=== PATIENT | male | born 1960 | race Caucasian/White ===

== ENCOUNTER → 2016-05-26 | Outpatient (CLI) | payer OTHER ==
[~2016-05-26] VITALS: Ht 175.3 cm; Wt 117.9 kg
[~2016-05-26] MED LIST: ASPI81CH PO; ATOR1TAB18 PO; CLAR10CA3 PO; CLAR5CHW; FENO54TA2 PO; IRON50TA PO; LEVO125T3 PO; LIDOCAINE 2% INJ 100 MG/5 ML SDV (FOR ANES.) As Ordered ONE; MOTR200T4; MULTCAP PO; NS 1,000 ML IV SCH; PARO40TA PO; PAXI40TA2 PO; PRIL40CA; PROPOFOL 200 MG/20 ML VIAL As Ordered ONE; PROT1TAB2 PO; QUET30XR PO; SERO1TAB2 PO; WELL100T PO
--- NOTE | 2016-05-26 11:50 | ROOR ---
Patient Name: Mars Elaine Procedure Date: 05/26/2016 11:28 AM Date of : 1960 Age: 55 Room: [facility] Gender: Male Note Status: Finalized Procedure: Upper GI endoscopy Indications: Iron deficiency anemia Providers: Prosper MCGEE MD Referring MD: SERGEY HAZEL MD Requesting Provider: Medicines: Monitored Anesthesia Care Complications: No immediate complications. Procedure: Pre-Anesthesia Assessment: - The heart rate, respiratory rate, oxygen saturations, blood pressure, adequacy of pulmonary ventilation, and response to care were monitored throughout the procedure. The Endoscope was introduced through the mouth, and advanced to the second part of duodenum. The upper GI endoscopy was accomplished without difficulty. The patient tolerated the procedure well. Findings: The esophagus was normal. The stomach was normal. The examined duodenum was normal. Impression: - Normal esophagus. - Normal stomach. - Normal examined duodenum. - No specimens collected. Recommendation: - Observe patient's clinical course. Prosper Mcgee MD Prosper MCGEE MD 05/26/2016 11:49:40 AM This report has been signed electronically. Number of Addenda: 0 Note Initiated On: 05/26/2016 11:28 AM Estimated Blood Loss: Estimated blood loss: none.
[2016-05-26 12:08] VITALS: BP 137/77
--- NOTE | 2016-05-26 12:08 | ROOR ---
Patient Name: Mars Elaine Procedure Date: 05/26/2016 11:30 AM Date of : 1960 Age: 55 Room: [facility] Gender: Male Note Status: Finalized Procedure: Colonoscopy Indications: Iron deficiency anemia Providers: Prosper MCGEE MD Referring MD: SERGEY HAZEL MD Requesting Provider: Medicines: Monitored Anesthesia Care Complications: No immediate complications. Procedure: Pre-Anesthesia Assessment: - The heart rate, respiratory rate, oxygen saturations, blood pressure, adequacy of pulmonary ventilation, and response to care were monitored throughout the procedure. The Colonoscope was introduced through the anus and advanced to 5 cm into the ileum. The colonoscopy was performed without difficulty. The patient tolerated the procedure well. The quality of the bowel preparation was adequate. Findings: The perianal and digital rectal examinations were normal. (EXAM: Complete, PREP: Fair/Adequate) A 4 mm polyp was found in the sigmoid colon. The polyp was sessile. The polyp was removed with a cold snare. Resection and retrieval were complete. Small Internal Hemorrhoids. The exam was otherwise without abnormality on direct and retroflexion views. Impression: - (EXAM: Complete, PREP: Fair/Adequate) - One 4 mm polyp in the sigmoid colon, removed with a cold snare. Resected and retrieved. - Small Internal Hemorrhoids. - The examination was otherwise normal on direct and retroflexion views. Recommendation: - Repeat colonoscopy in 3 years for surveillance. Prosper Mcgee MD Prosper MCGEE MD 05/26/2016 12:08:15 PM This report has been signed electronically. Number of Addenda: 0 Note Initiated On: 05/26/2016 11:30 AM Estimated Blood Loss: Estimated blood loss: none.
== END | disposition home or self-care (01) ==
LOC: M OPP 08:50
PROVIDERS: ATTEND Internal Medicine Gastroenterology
DX: D50.9 Iron deficiency anemia, unspecified (principal); D12.5 Benign neoplasm of sigmoid colon; K64.8 Other hemorrhoids; E78.00 Pure hypercholesterolemia, unspecified; K21.9 Gastro-esophageal reflux disease without esophagitis; E07.9 Disorder of thyroid, unspecified; R06.83 Snoring; F33.9 Major depressive disorder, recurrent, unspecified; F41.9 Anxiety disorder, unspecified; G47.30 Sleep apnea, unspecified; Z87.891 Personal history of nicotine dependence; Z79.82 Long term (current) use of aspirin; Z79.899 Other long term (current) drug therapy; Z88.5 Allergy status to narcotic agent; Z88.0 Allergy status to penicillin

== ENCOUNTER → 2016-06-06 | Outpatient (REF) | payer OTHER, MEDICAID ==
[~2016-06-06] MED LIST changes: +ASPI81TA7 PO; +DOCU100C PO; +LEVO137T14 PO; -LIDOCAINE 2% INJ 100 MG/5 ML SDV (FOR ANES.) As Ordered ONE; -NS 1,000 ML IV SCH; +PAXI30TA11 PO; +PRAZ1CAP PO; -PROPOFOL 200 MG/20 ML VIAL As Ordered ONE; +TUMS500C PO; +VITMTA PO
[2016-06-06 17:35] LABS: AMPHETAMINES URINE REFLEX NEGATIVE (NEGATIVE); BARBITURATES URINE REFLEX NEGATIVE (NEGATIVE); BENZODIAZEPINES URINE REFLEX NEGATIVE (NEGATIVE); COCAINE METABOLITE URINE REFLE NEGATIVE (NEGATIVE); CONTROL LINE INT CTR LINE PRESENT; METHADONE URINE REFLEX NEGATIVE (NEGATIVE); OPIATES URINE REFLEX NEGATIVE (NEGATIVE); TRICYCLIC ANTIDEPRESS UR REFL NEGATIVE (NEGATIVE)
== END ==
LOC: M OUTALCOH 16:53
PROVIDERS: ATTEND Psychiatry & Neurology Psychiatry
DX: Z13.9 Encounter for screening, unspecified (principal); F12.10 Cannabis abuse, uncomplicated

== ENCOUNTER 2016-06-07 14:19 | Inpatient (IN) | payer MEDICAID, OTHER ==
[~2016-06-07] VITALS: Ht 175.3 cm; Wt 116.3 kg
[~2016-06-07 14:19] MED LIST changes: -ASPI81TA7 PO; -DOCU100C PO; -LEVO137T14 PO; -PAXI30TA11 PO; -PRAZ1CAP PO; -TUMS500C PO; -VITMTA PO
[2016-06-07 15:04] LABS: MEAN CORPUSCULAR HEMOGLOBIN 28.9 pg (27.0-33.0); MEAN CORPUSCULAR HGB CONC 31.9 g/dl (32.0-36.5); MEAN CORPUSCULAR VOLUME 90.6 fl (80.0-96.0); RED CELL DISTRIBUTION WIDTH 15.4 % (11.5-14.5); WHITE BLOOD COUNT 7.7 K/mm3 (4.0-10.0)
--- NOTE | 2016-06-07 15:19 | REP ---
Portable chest: Single view. History: Shortness of breath. Comparison study: May 02, 2012 Findings: The lungs are symmetrically hyperinflated consistent with some degree of COPD but clear. Pleural angles are sharp. Heart size is normal. Pulmonary vasculature is not increased. No significant bony abnormality is seen. Impression: Hyperinflation. No acute disease. Signed by Kendall Trinh MD 06/07/2016 03:10 P
[2016-06-07 15:34] LABS: ALBUMIN 4.4 GM/DL (3.2-5.2); ALBUMIN/GLOBULIN RATIO 1.38 (1.00-1.93); ALKALINE PHOSPHATASE 107 U/L (45-117); ALT/SGPT 48 U/L (12-78); ANION GAP 11 MEQ/L (8-16); AST/SGOT 28 U/L (15-37); BILIRUBIN,DIRECT 0.1 MG/DL (0.0-0.2); BILIRUBIN,TOTAL 0.4 MG/DL (0.2-1.0); BLOOD UREA NITROGEN 13 MG/DL (7-18); CALCIUM LEVEL 9.4 MG/DL (8.5-10.1); CARBON DIOXIDE LEVEL 25 MEQ/L (21-32); CHLORIDE LEVEL 105 MEQ/L (98-107); CREATININE FOR GFR 1.28 MG/DL (0.70-1.30); GLOMERULAR FILTRATION RATE > 60.0 (>56); GLUCOSE, FASTING 98 MG/DL (70-105); POTASSIUM SERUM 4.3 MEQ/L (3.5-5.1); SODIUM LEVEL 141 MEQ/L (136-145); TOTAL PROTEIN 7.6 GM/DL (6.4-8.2)
[2016-06-07 15:56] LABS: MAGNESIUM LEVEL 2.3 MG/DL (1.8-2.4)
[2016-06-07 16:45] LABS: CONTROL LINE INT CTR LINE PRESENT; METHADONE URINE NEGATIVE (NEGATIVE); TRICYCLIC ANTIDEPRESS URINE NEGATIVE (NEGATIVE)
[2016-06-07] MEDS ORDERED: PAXI30TA11 PO (17:26)
[2016-06-07] MEDS ORDERED: PRAZ1CAP PO (17:32)
[2016-06-07] MEDS ORDERED: TUMS500C PO (17:32)
[2016-06-07] MEDS ORDERED: ASPI81TA7 PO (17:32)
[2016-06-07] MEDS ORDERED: DOCU100C PO (17:32)
[2016-06-07] MEDS ORDERED: VITMTA PO (17:32)
[2016-06-07] MEDS ORDERED: LEVO137T14 PO (17:32)
--- NOTE | 2016-06-07 18:31 | REP ---
Bilateral duplex carotid and jugular ultrasound post trauma, hanging injury: Tibiotalar Doppler assessment of the carotid arteries bilaterally identifies no evidence of dissection or occlusion. There is no atheromatous plaque. 2-D and color Doppler ultrasound of the jugular veins bilaterally identified. No evidence of thrombus. Ultrasonography of the soft tissues in area where there is a zone of skin redness around the neck identifies subcutaneous edema versus hematoma superficially. Signed by Moshe Walton MD 06/07/2016 06:23 P
[2016-06-07] MEDS ORDERED: HEPARIN SOD (PORCINE) 5000 UNITS/ML VIAL As Ordered ONE (18:52)
[2016-06-07] MEDS ORDERED: ASPIRIN 81 MG CHEW TABLET As Ordered ONE (18:52)
[2016-06-07] MEDS ORDERED: METOPROLOL TART 50 MG TAB As Ordered ONE (18:53)
[2016-06-07] MEDS ORDERED: HEPARIN 25,000 UNITS/250 ML D5W BAG (100 UNITS/ML) As Ordered ONE (18:53)
--- NOTE | 2016-06-08 00:33 | EDDOCDS ---
Physician Documentation [facility] Name: Mars Elaine Age: 55 yrs Sex: Male : 1960 Arrival Date: 06/07/2016 Time: 14:[address] MD: Trent Jimenez D Disposition: 06/07 21:21 Critical Care: Critical care not applicable. Disposition: 06/07/16 21:22 Hospitalization ordered by Renan Chung for Inpatient Admission. Preliminary diagnosis are Major depressive disorder, recurrent severe without psychotic features, Suicide attempt - by hanging. - Bed requested for Admit. - Status is Inpatient Admission. tm5 - Condition is Stable. - Problem is new. - Symptoms are unchanged. Historical: - Allergies: PENICILLINS; oxycodone; - Home Meds: 1. loratadine 10 mg Oral tab 1 tab once daily (Last dose: 06/07/2016 08:00) 2. Paroxetine HCl Oral 60 mg once daily (Last dose: 06/07/2016 08:00) 3. levothyroxine 137 mcg Oral tab 1 tab once daily (Last dose: 06/07/2016 08:00) 4. aspirin 81 mg Oral tab 1 tab once daily (Last dose: 06/07/2016 08:00) 5. Tums Unknown Oral as needed (Last dose: Unknown) 6. pantoprazole 40 mg oral TbEC 1 tab once daily (Last dose: 06/07/2016 08:00) 7. docusate sodium 100 mg Oral cap as needed (Last dose: Unknown) 8. fenofibrate 54 mg oral tab 1 tab once daily (Last dose: 06/06/2016 12:00) 9. Seroquel XR 300 mg oral Tb24 1 tab once daily (Last dose: 06/06/2016 20:00) 10. multivitamin Oral tab daily (Last dose: 06/06/2016 20:00) 11. ferrous sulfate 325 mg (65 mg iron) Oral tab daily (Last dose: 06/06/2016 20:00) 12. atorvastatin 80 mg oral tab 1 tab once daily (Last dose: 06/06/2016 20:00) - PMHx: Anxiety Disorder; Depression; High Cholesterol; Hypothyroidism; PTSD; GERD; iron deficiency; Sleep Apnea w/ CPAP; - PSHx: Left shoulder bone spur removal; - Social history: Smoking status: Patient states former smoker of tobacco. No barriers to communication noted, The patient speaks fluent Hungarian. - Family history: Mother has/had Suicide. - : The pt / caregiver states he / she is not on anticoagulants. Home medication list is obtained from the patient, Note states that she picked up a prescription for Prazosin 1 mg p.o. QHS that patient was scheduled to begin tonight for his nightmare. Medication verified by Giovanni Merlos. - Exposure Risk Screening:: None identified. Vital Signs: 14:29 Pulse 72 MON; Pulse Ox 96% ; ja5 14:30 BP 128 / 85 (auto/); ja5 14:38 BP 125 / 85; Pulse 68; Resp 18; Temp 97.7(O); Pulse Ox 98% on R/A; Weight 114.76 kg / ct3 253 lbs (M); Height 5 ft. 9 in. (175.26 cm) (R); 14:45 BP 133 / 85 (auto/); jc4 14:45 Pulse 67 MON; Pulse Ox 96% ; jc4 15:00 BP 144 / 88 (auto/); jc4 15:02 Pulse 70 MON; Pulse Ox 99% ; jc4 15:15 BP 130 / 71 (auto/); jc4 15:15 Pulse 62 MON; Pulse Ox 100% ; jc4 15:30 BP 129 / 76 (auto/); jc4 15:30 Pulse 67 MON; Pulse Ox 97% ; jc4 15:45 BP 111 / 66 (auto/); jc4 15:45 Pulse 69 MON; Pulse Ox 93% ; jc4 16:00 BP 123 / 70 (auto/); jc4 16:01 Pulse 71 MON; Pulse Ox 97% ; jc4 16:14 Pulse 72 MON; Pulse Ox 98% ; ja5 16:15 BP 128 / 78 (auto/); ja5 16:29 Pulse 72 MON; Pulse Ox 94% ; ja5 16:30 BP 126 / 63 (auto/); ja5 16:59 Pulse 70 MON; Pulse Ox 96% ; ja5 17:00 BP 119 / 69 (auto/); ja5 17:14 Pulse 72 MON; Pulse Ox 96% ; ja5 17:15 BP 116 / 70 (auto/); ja5 17:29 Pulse 76 MON; Pulse Ox 97% ; ja5 17:30 BP 142 / 90 (auto/); ja5 18:40 BP 147 / 90; Pulse 75; Resp 20; Temp 97.3(T); Pulse Ox 94% on R/A; Pain 0/10; ja5 19:38 BP 141 / 76; Pulse 76; Resp 20; Pulse Ox 96% on R/A; Pain 0/10; tm5 20:00 BP 147 / 60 (auto/); tm5 20:00 Pulse 70 MON; Resp 18 S; Pulse Ox 95% on R/A; Pain 0/10; tm5 0208 00:19 Pulse 65; Resp 18; Temp 97.0; Pulse Ox 98% ; mas 00:26 BP 163 / 88; mas 06/07 14:38 Body Mass Index 37.36 (114.76 kg, 175.26 cm) ct3 MDM: 06/07 14:25 Consult PFS/PSA/Senior Coldfusion Developer ordered. sd1 14:25 Consult PFS/PSA/Senior Coldfusion Developer: Patient's case requires discussion with on-call sd1 Psychiatrist ordered. 14:25 PSA/PFS to call Nursing [employer] Net Developer, to enter patient data on [place] Safe Act if patient sd1 involuntarily admitted or transferred for SI or HI ordered. 14:25 Outreach Professional/Pulse Ox/q 15 min VS ordered. sd1 14:25 Confirm accurate psychiatric medication list and times of last dosage ordered. sd1 14:25 Detain Pt Until Medically/PFS Cleared ordered. sd1 14:25 IV Saline Lock ordered. sd1 14:26 Acetaminophen Level Ordered. EDMS 14:26 Basic Metabolic Profile Ordered. EDMS 14:26 Complete Blood Count Ordered. EDMS 14:26 Drug Eval Toxicology ED Only Ordered. EDMS 14:26 Ethyl Alcohol (ethanol) Ordered. EDMS 14:26 Liver Profile Ordered. EDMS 14:26 Salicylate Level Ordered. EDMS 14:26 Thyroid Stimulating Hormone Ordered. EDMS 14:26 ECG WITH READING ER PHYS+CARDIAG ordered. EDMS 14:38 Chest, 1 View Ordered. EDMS 14:54 CARDIAC INJURY PROFILE Ordered. EDMS 14:54 TROPONIN Ordered. EDMS 15:23 Repeat EKG (put time details section) ordered. sd1 15:28 MAGNESIUM LEVEL Ordered. EDMS 15:55 Acetaminophen Level Reviewed. sd1 15:55 Complete Blood Count Reviewed. sd1 15:55 Ethyl Alcohol (ethanol) Reviewed. sd1 15:55 Salicylate Level Reviewed. sd1 15:55 Thyroid Stimulating Hormone Reviewed. sd1 15:55 CARDIAC INJURY PROFILE Reviewed. sd1 15:55 Basic Metabolic Profile Reviewed. sd1 15:55 Liver Profile Reviewed. sd1 15:55 TROPONIN Reviewed. sd1 15:55 Chest, 1 View Reviewed. sd1 16:16 Acetaminophen Level Reviewed. cs11 16:16 Ethyl Alcohol (ethanol) Reviewed. cs11 16:16 Salicylate Level Reviewed. cs11 16:16 Thyroid Stimulating Hormone Reviewed. cs11 16:16 CARDIAC INJURY PROFILE Reviewed. cs11 16:16 Basic Metabolic Profile Reviewed. cs11 16:16 Liver Profile Reviewed. cs11 16:16 TROPONIN Reviewed. cs11 16:16 MAGNESIUM LEVEL Reviewed. cs11 16:31 Financial registration complete. ks16 16:42 Repeat EKG (put time details section) complete. lbd 16:46 ECG WITH READING ER PHYS ordered. EDMS 16:59 Drug Eval Toxicology ED Only Reviewed. cs11 17:06 Misc Data Management Analyst Order ordered. cs11 17:07 BED REQUEST+ADM ordered. EDMS 17:08 [facility] Payment Agreement was scanned into [employer] and attached to record. ks16 17:32 Misc Data Management Analyst Order complete. lbd 17:39 DUPLEX SCAN LIMITED (DOPPLER) Ordered. EDMS 17:51 REGULAR DIET PLASTIC ARRINGTON+DIET ordered. EDMS 18:42 Aspirin 324 mg PO once ordered. cs11 18:42 Metoprolol (Tartrate) 25 mg PO once ordered. cs11 18:46 Pt & Aptt Ordered. EDMS 18:53 Cardiac Marker Panel Ordered. EDMS 20:00 Cardiac Marker Panel Reviewed. pc 20:00 Pt & Aptt Reviewed. pc 20:00 DUPLEX SCAN LIMITED (DOPPLER) Reviewed. pc 20:29 Consult PFS/PSA/Senior Coldfusion Developer complete. tm5 20:38 Consult PFS/PSA/Senior Coldfusion Developer: Patient's case requires discussion with on-call cl Psychiatrist complete. 20:38 PSA/PFS to call Nursing [employer] Net Developer, to enter patient data [place] Safe [place] if patient cl involuntarily admitted or transferred for SI or HI complete. 21:21 [place] Safe Act reporting: The patient poses a significant risk to self or others, and pc PSA/PFS has notified the Nursing [employer] Net Developer and he/she will complete the required data acquisition technician. Test interpretation: LAB - all labs as ordered have been reviewed, interpreted and considered in the overall management of the clinical presentation;. The patient has been re-examined and re-evaluated. There is no appreciated change of the patient's symptoms at this time. Disposition: The historical points, examination findings, and any diagnostic results supporting the provided diagnosis, were discussed with the patient or legal guardian. The need for further work-up and/or treatment in the hospital was explained. 22:37 E Legal paperwork was scanned into [employer] and attached to record. 22:37 Admit to [facility]: ordered. EDMS Administered Medications: 18:52 CANCELLED (Other Intervention Used): heparin (Thrombolytic Protocol, 12 units/kg/hr)) cs11 18776 units IV at 1000 units/hr once; Max. dose 1000units/hr. No Lovenox past 18hrs/ draw labs. 18:52 CANCELLED (Other Intervention Used): heparin (Thrombolytic Protocol, 60 units/kg)) 4000 cs11 units IVP once; max 4000 units. Ensure no Lovenox in past 18hr, labs drawn 18:58 Drug: Aspirin 324 mg [aspirin 81 mg chewable tablet (4 tabs)] Route: PO; ja5 19:31 Follow up: Response: No Adverse Reaction tm5 18:58 Drug: Metoprolol 25 mg [metoprolol tartrate 50 mg tablet (0.5 tabs)] Route: PO; ja5 19:31 Follow up: Response: No Adverse Reaction tm5 Signatures: Dispatcher [employer] EDMS Derik Siddiqui MD MD pc Delaney-Rowland, Sarah, MD MD sd1 Celestina Ozuna, [facility] lbd Gabrielle, Elias, PSA PSA cl Kaleb Ramirez, PSA PSA cs Yari Read, LESLEY RN jc4 Chidi Carpio, DO cs11 Kristal Hoffman, Reg Reg ks16 Lucrecia Vazquez RN RN tm5 Grace Ramos RN RN ja5 The chart was reviewed and I authenticate all verbal orders and agree with the evaluation and treatment provided.Corrections: (The following items were deleted from the chart) 14:51 14:41 Home Meds: Seroquel XR 300 mg oral Tb24 1 tab once daily (Last Dose: 06/07/2016 ja5 08:00); [facility] 14:51 14:41 Home Meds: atorvastatin 80 mg oral tab 1 tab once daily (Last Dose: 06/07/2016 5 08:00); [facility] 14:51 14:41 Home Meds: multivitamin Oral tab daily (Last Dose: 06/07/2016 08:00); [facility] 5 14:51 14:41 Home Meds: ferrous sulfate 325 mg (65 mg iron) Oral tab daily (Last Dose: [facility] 06/07/2016 08:00); [facility] 14:51 14:41 Home Meds: fenofibrate 54 mg oral tab 1 tab once daily (Last Dose: 06/07/2016 5 08:00); [facility] 14:54 14:44 CARDIAC INJURY PROFILE+LAB ordered. EDMS EDMS 14:54 14:44 TROPONIN+LAB ordered. EDMS EDMS 15:28 15:06 MAGNESIUM LEVEL+LAB ordered. EDMS EDMS 18:52 18:44 heparin (Thrombolytic Protocol, 12 units/kg/hr)) 19445 units IV at 1000 units/hr cs11 once; Max. dose 1000units/hr. No Lovenox past 18hrs/ draw labs. ordered. cs11 18:52 18:44 heparin (Thrombolytic Protocol, 60 units/kg)) 4000 units IVP once; max 4000 cs11 units. Ensure no Lovenox in past 18hr, labs drawn ordered. cs11 Attachments: 17:08 [facility] Payment Agreement [email or web address]
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
[2016-06-08 00:38] VITALS: BP 152/92
[2016-06-08] MEDS ORDERED: MAALOX 30 ML SUSP *UDC PO PRN (02:00)
[2016-06-08] MEDS ORDERED: traZODone 50 MG TAB PO PRN (02:00)
[2016-06-08] MEDS ORDERED: MOM 30ML SUSPENSION UDC PO PRN (02:00)
[2016-06-08] MEDS ORDERED: DOCUSATE SODIUM 100 MG CAP PO PRN (02:00)
[2016-06-08] MEDS ORDERED: ACETAMINOPHEN TAB 650MG DOSE (2X325MG) PO PRN (02:00)
[2016-06-08] MEDS: LEVOTHYROXINE 0.137 MG TAB (137MCG) PO SCH (06:21)
[2016-06-08] MEDS: PANTOPRAZOLE 40MG TAB (PROTONIX) PO SCH (08:26)
[2016-06-08] MEDS: MULTIVITAMINS/MINERALS THERAP 1 TAB PO SCH (08:26)
[2016-06-08] MEDS: PARoxetine 20 MG TAB PO SCH (08:27)
[2016-06-08] MEDS: FERROUS SULFATE 325MG TAB PO SCH (08:27)
[2016-06-08] MEDS: LORATADINE 10 MG TAB PO SCH (08:27)
[2016-06-08] MEDS: ASPIRIN 81 MG ENTERIC TAB PO SCH (08:27)
[2016-06-08] MEDS ORDERED: ATORVASTATIN 20 MG TAB PO SCH (09:00)
[2016-06-08] MEDS ORDERED: FENOFIBRATE 48 MG TAB (TRICOR) PO SCH (09:00)
[2016-06-08] MEDS: FENOFIBRATE 48 MG TAB (TRICOR) PO SCH (12:18)
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
[2016-06-08 12:38] VITALS: BP 160/96
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
[2016-06-08 18:05] VITALS: BP 148/98
[2016-06-08] MEDS: QUEtiapine 300 MG XR TABLET(SEROQUEL XR) PO SCH (20:14)
[2016-06-08] MEDS: ATORVASTATIN 20 MG TAB PO SCH (20:15)
--- NOTE | 2016-06-08 21:42 | ECGEPIP ---
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
--- NOTE | 2016-06-08 21:46 | ECGEPIP ---
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
[2016-06-09] MEDS: LEVOTHYROXINE 0.137 MG TAB (137MCG) PO SCH (06:13)
[2016-06-09 07:49] LABS: MEAN CORPUSCULAR HEMOGLOBIN 29.6 pg (27.0-33.0); MEAN CORPUSCULAR HGB CONC 32.5 g/dl (32.0-36.5); MEAN CORPUSCULAR VOLUME 91.2 fl (80.0-96.0); RED CELL DISTRIBUTION WIDTH 15.2 % (11.5-14.5); WHITE BLOOD COUNT 8.8 K/mm3 (4.0-10.0)
[2016-06-09] MEDS: LORATADINE 10 MG TAB PO SCH (08:04)
[2016-06-09] MEDS: MULTIVITAMINS/MINERALS THERAP 1 TAB PO SCH (08:04)
[2016-06-09] MEDS: ASPIRIN 81 MG ENTERIC TAB PO SCH (08:04)
[2016-06-09] MEDS: PANTOPRAZOLE 40MG TAB (PROTONIX) PO SCH (08:04)
[2016-06-09] MEDS: PARoxetine 20 MG TAB PO SCH (08:04)
[2016-06-09] MEDS: FERROUS SULFATE 325MG TAB PO SCH ×2 (08:04→21:25)
[2016-06-09 08:25] LABS: FERRITIN 209 NG/ML (26-388); FREE T4 0.84 NG/DL (0.76-1.46); PERCENT SATURATION 14.1 % (19.7-37.4); TOTAL IRON BINDING CAPACITY 397 UG/DL (250-450)
--- NOTE | 2016-06-09 08:34 | IPNPDOC ---
[facility] Progress Note Progress Note DATE OF SERVICE: 06/09/16 Subjective: Patient reporting improved mood this morning. He reports fair sleep and appetite. Today patient denies SI/HI and AH/VH. He is med compliant and denies med s/e's. Objective: VITAL SIGNS: Within normal limits LABORATORY DATA: Please see below. MENTAL STATUS EXAMINATION: 55year-old male who appears stated age, dressed in hospital attire, in NAD Speech: Is regular rate and rhythm, spontaneous Thought processes: Linear, Goal directed. Thought content: frustrated with his suicidal behavior, not being able to cope, and hurting his grandchildren Orientation: Alert and oriented to time, place and person and situation Recent and remote memory: Intact. Immediate short-term and long-term memory is: intact. Attention span and concentration: fair. Language: Normal. Fund of knowledge: good. Mood: depressed Affect: broad, smiling at times PROBLEM LIST: 1. Suicidal ideations. 2. Depression. 3. Anxiety. 4. Risk for suicide, s/p suicide attempt by hanging 5. Risk for self-injury 6. Poor impulse control 7. Medication & Followup appt. Noncompliance ASSESSMENT: -MDD, R, S w/o PFs -PTSD PLAN: ------- 1.~ ~ Patient was admitted on a 9.30 legal status, 2.~ ~ Complete history was obtained. 3.~ ~ With patients permission, family will be contacted and database will be expanded. 4.~ ~ Continue current psychotropic regimen. 5.~ ~ Patient will be provided with protected environment. 6.~ ~ Patient will be treated with individual, group, and milieu therapies. 7.~ ~ Patient will receive supportive psych-education. Estimated length of patients stay will be between 3-5 days. TIME SPENT ON CARE: 30 minutes Vital Signs Vital Signs Date Time Temp Pulse Resp B/P Pulse Ox O2 Delivery O2 Flow Rate FiO2 06/08/16 18:05 96.7 78 18 148/98 06/08/16 00:38 Room Air Laboratory Data 24H Labs Laboratory Tests 2 06/09/16 07:02: Ferritin 209, Free Thyroxine 0.84, Iron Level 56L, Thyroid Stimulating Hormone ( TSH) 7.490H, Total Iron Binding Capacity 397, Transferrin % Saturation 14.1L CBC/BMP Laboratory Tests 06/09/16 07:02 Red Blood Count 5.01, Mean Corpuscular Volume 91.2, Mean Corpuscular Hemoglobin 29.6, Mean Corpuscular Hemoglobin Concent 32.5, Red Cell Distribution Width 15.2 H Current Medications Current Medications Acetaminophen (Tylenol Tab) 650 mg Q6HP PRN PO HEADACHE or DISCOMFORT; Start at 02:00; Stop 07/08/16 at 01:59 Al Hydrox/Mg Hydrox/Simethicone (Mylanta) 30 ml Q4HP PRN PO HEARTBURN/ INDIGESTION; Start 06/08/16 at 02:00; Stop 07/08/16 at 01:59 Aspirin (Ecotrin) 81 mg DAILY PO Last administered on 06/08/16 08:27; Start 06/08/16 at 09:00; Stop 07/08/16 at 08:59 Atorvastatin Calcium (Lipitor) 80 mg DAILY PO ; Start 06/08/16 at 09:00; Stop 06/08/16 at 09:00; Status DC Atorvastatin Calcium (Lipitor) 80 mg QHS PO Last administered on 06/08/16 20:15 ; Start 06/08/16 at 21:00; Stop 07/08/16 at 20:59 Docusate Sodium (Colace) 100 mg DAILYPRN PRN PO CONSTIPATION; Start 06/08/16 at 02:00; Stop 07/08/16 at 01:59 Fenofibrate (Tricor) 48 mg DAILY@12 PO Last administered on 06/08/16 12:18; Start 06/08/16 at 12:00; Stop 07/08/16 at 11:59 Fenofibrate (Tricor) 54 mg DAILY PO ; Start 06/08/16 at 09:00; Stop 06/08/16 at 09 :00; Status DC Ferrous Sulfate (Ferrous Sulfate) 325 mg DAILY PO Last administered on 08:27; Start 06/08/16 at 09:00; Stop 07/08/16 at 08:59 Home Med (Med Rec Complete!) ASDIRECTED XX ; Start 06/07/16 at 17:45; Stop at 21:21; Status DC Levothyroxine Sodium (Synthroid) 0.137 mg DAILY@06 PO Last administered on 06:13; Start 06/08/16 at 06:00; Stop 07/08/16 at 05:59 Loratadine (Claritin) 10 mg DAILY PO Last administered on 06/08/16 08:27; Start 06/08/16 at 09:00; Stop 07/08/16 at 08:59 Magnesium Hydroxide (Milk Of Magnesia) 30 ml DAILYPRN PRN PO CONSTIPATION; Start 06/08/16 at 02:00; Stop 07/08/16 at 01:59 Multivitamins (Theragram-M) 1 tab DAILY PO Last administered on 06/08/16 08:26 ; Start 06/08/16 at 09:00; Stop 07/08/16 at 08:59 Pantoprazole Sodium (Protonix) 40 mg DAILY PO Last administered on 06/08/16 08: 26; Start 06/08/16 at 09:00; Stop 07/08/16 at 08:59 Paroxetine HCl (PAXil) 60 mg DAILY PO Last administered on 06/08/16 08:27; Start 06/08/16 at 09:00; Stop 07/08/16 at 08:59 Quetiapine Fumarate (SEROquel XR) 300 mg QPM PO Last administered on 06/08/16 20:14; Start 06/08/16 at 21:00; Stop 07/08/16 at 20:59 Trazodone HCl (Desyrel) 50 mg QHSP PRN PO INSOMNIA; Start 06/08/16 at 02:00; Stop 07/08/16 at 01:59 Allergies Coded Allergies: Penicillins (Unverified Allergy, Intermediate, RASH, 08/06/12) Penicillins Cross Reactors (Unverified Allergy, Intermediate, RASH, 08/06/12 ) Oxycodone (Unverified Allergy, Mild, ITCH, RASH, 05/20/16) GABY CLAYTON MD Jun 09, 2016 08:34
[2016-06-09 09:52] LABS: VITAMIN B12 LEVEL 704 PG/ML (247-911)
[2016-06-09 09:53] LABS: FOLATE > 24.0 NG/ML (>5.4)
[2016-06-09] MEDS: FENOFIBRATE 48 MG TAB (TRICOR) PO SCH (11:50)
[2016-06-09 12:00] VITALS: BP 170/100
--- NOTE | 2016-06-09 12:15 | IPNPDOC ---
Subjective General Date Seen The patient was seen on 06/09/16. Subjective Chief Complaint/HPI The patient is a 55-year-old male admitted with a reason for visit of Unspecified Depressive Disorder. Events since last encounter Pt with no new complaints. Objective Physical Examination General Exam: Positive: Alert Eye Exam: Positive: PERRLA ENT Exam: Positive: Atraumatic Chest Exam: Positive: Clear to auscultation Heart Exam: Positive: Normal S1, Normal S2, Rate Normal, Regular Rhythm, Negative: Murmurs, Rubs Skin Exam: Positive: Nl turgor and temperature Neuro Exam: Positive: Normal Gait Assessment /Plan Problems Problems: (1) Hypothyroid Status: Chronic Problem Text: * TSH is noted to be 7.49 * Free T4 is 0.86 * Will increase supplement- Synthroid 150 g daily * Planned for outpatient follow-up with free T4 and TSH in 4 weeks with PCP. (2) Iron deficiency Status: Chronic Problem Text: * Will increase iron supplement to 325 mg by mouth twice a day * Plan for outpatient follow-up with PCP (3) Hypertension Status: Acute Problem Text: * Blood pressures have been elevated since admission. * 152/92, 160/96, 148/98. * Low-sodium diet previously requested * Will order Norvasc 5 mg with hold parameter. * Monitor. Plan/VTE VTE Prophylaxis Ordered?: No (ambulatory) VS, I&O, 24H, Fishbone Vital Signs/I&O Vital Signs Date Time Temp Pulse Resp B/P Pulse Ox O2 Delivery O2 Flow Rate FiO2 06/08/16 18:05 96.7 78 18 148/98 06/08/16 00:38 Room Air Laboratory Data 24H LABS Laboratory Tests 2 06/09/16 07:02: Ferritin 209, Folate > 24.0, Free Thyroxine 0.84, Iron Level 56L, Thyroid Stimulating Hormone (TSH) 7.490H, Total Iron Binding Capacity 397, Transferrin % Saturation 14.1L, Vitamin B12 Level 704 CBC/BMP Laboratory Tests 06/09/16 07:02 Red Blood Count 5.01, Mean Corpuscular Volume 91.2, Mean Corpuscular Hemoglobin 29.6, Mean Corpuscular Hemoglobin Concent 32.5, Red Cell Distribution Width 15.2 H Cristin Wilson Jun 09, 2016 12:14
[2016-06-09] MEDS: amLODIPine 5 MG TAB PO SCH (12:41)
[2016-06-09 18:00] VITALS: BP 143/83
[2016-06-09] MEDS: ATORVASTATIN 20 MG TAB PO SCH (21:26)
[2016-06-09] MEDS: QUEtiapine 300 MG XR TABLET(SEROQUEL XR) PO SCH (21:26)
--- NOTE | 2016-06-09 23:51 | IPNPDOC ---
[facility] Progress Note Progress Note DATE OF SERVICE: 06/09/16 Subjective: Patient reporting improved mood this morning. He reports fair sleep and appetite. Patient reports reflecting on his attempted hanging and frustrated with his suicidal behavior, not being able to cope, and hurting his grandchildren. He reports he is the only father figure for his grand kids. He reports acknowledging the relationship he has with his 2 grandchildren is protective. Patient also upset by his drinking. He reports being aware of alcohol being a depressant and is frustrated by his use of the substance in the midst of his current depression. Patient educated alcohol also disinhibits behavior. Patient explained when depressed with SI, alcohol may be the trigger to attempting suicide. Patient acknowledged understanding. Today patient denies SI/HI and AH/VH. He is med compliant and denies med s/e's. Objective: VITAL SIGNS: Within normal limits LABORATORY DATA: Please see below. MENTAL STATUS EXAMINATION: 55year-old male who appears stated age, dressed in hospital attire, in NAD Speech: Is regular rate and rhythm, spontaneous Thought processes: Linear, Goal directed. Thought content: frustrated with his suicidal behavior, not being able to cope, and hurting his grandchildren Orientation: Alert and oriented to time, place and person and situation Recent and remote memory: Intact. Immediate short-term and long-term memory is: intact. Attention span and concentration: fair. Language: Normal. Fund of knowledge: good. Mood: depressed Affect: broad, smiling at times PROBLEM LIST: 1. Suicidal ideations. 2. Depression. 3. Anxiety. 4. Risk for suicide, s/p suicide attempt by hanging 5. Risk for self-injury 6. Poor impulse control 7. Medication & Followup appt. Noncompliance ASSESSMENT: -MDD, R, S w/o PFs -PTSD PLAN: ------- 1.~ ~ Patient was admitted on a 01.28 legal status, 2.~ ~ Complete history was obtained. 3.~ ~ With patients permission, family will be contacted and database will be expanded. 4.~ ~ Continue current psychotropic regimen: Paxil at 60mg po daily for mood and anxiety Seroquel 300mg po qhs for mood augmentation, impulsivity, agitation , insomnia Prazosin 1mg po qhs for NMs 5.~ ~ Patient will be provided with protected environment. 6.~ ~ Patient will be treated with individual, group, and milieu therapies. 7.~ ~ Patient will receive supportive psych-education. Estimated length of patients stay will be between 3-5 days. TIME SPENT ON CARE: 30 minutes Vital Signs Vital Signs Date Time Temp Pulse Resp B/P Pulse Ox O2 Delivery O2 Flow Rate FiO2 06/09/16 18:00 97.3 81 16 143/83 06/08/16 00:38 Room Air Laboratory Data 24H Labs Laboratory Tests 2 06/09/16 07:02: Ferritin 209, Folate > 24.0, Free Thyroxine 0.84, Iron Level 56L, Thyroid Stimulating Hormone (TSH) 7.490H, Total Iron Binding Capacity 397, Transferrin % Saturation 14.1L, Vitamin B12 Level 704 CBC/BMP Laboratory Tests 06/09/16 07:02 Red Blood Count 5.01, Mean Corpuscular Volume 91.2, Mean Corpuscular Hemoglobin 29.6, Mean Corpuscular Hemoglobin Concent 32.5, Red Cell Distribution Width 15.2 H Current Medications Current Medications Acetaminophen (Tylenol Tab) 650 mg Q6HP PRN PO HEADACHE or DISCOMFORT; Start at 02:00; Stop 07/08/16 at 01:59 Al Hydrox/Mg Hydrox/Simethicone (Mylanta) 30 ml Q4HP PRN PO HEARTBURN/ INDIGESTION; Start 06/08/16 at 02:00; Stop 07/08/16 at 01:59 Amlodipine Besylate (Norvasc) 5 mg DAILY PO Last administered on 06/09/16 12:41 ; Start 06/09/16 at 09:00; Stop 07/09/16 at 08:59 Aspirin (Ecotrin) 81 mg DAILY PO Last administered on 06/09/16 08:04; Start 06/08/16 at 09:00; Stop 07/08/16 at 08:59 Atorvastatin Calcium (Lipitor) 80 mg DAILY PO ; Start 06/08/16 at 09:00; Stop 06/08/16 at 09:00; Status DC Atorvastatin Calcium (Lipitor) 80 mg QHS PO Last administered on 06/09/16 21:26 ; Start 06/08/16 at 21:00; Stop 07/08/16 at 20:59 Docusate Sodium (Colace) 100 mg DAILYPRN PRN PO CONSTIPATION; Start 06/08/16 at 02:00; Stop 07/08/16 at 01:59 Fenofibrate (Tricor) 48 mg DAILY@12 PO Last administered on 06/09/16 11:50; Start 06/08/16 at 12:00; Stop 07/08/16 at 11:59 Fenofibrate (Tricor) 54 mg DAILY PO ; Start 06/08/16 at 09:00; Stop 06/08/16 at 09 :00; Status DC Ferrous Sulfate (Ferrous Sulfate) 325 mg BID PO Last administered on 06/09/16 21:25; Start 06/09/16 at 21:00; Stop 07/09/16 at 20:59 Ferrous Sulfate (Ferrous Sulfate) 325 mg DAILY PO Last administered on 08:04; Start 06/08/16 at 09:00; Stop 06/09/16 at 12:05; Status DC Home Med (Med Rec Complete!) ASDIRECTED XX ; Start 06/07/16 at 17:45; Stop at 21:21; Status DC Levothyroxine Sodium (Synthroid) 0.137 mg DAILY@06 PO Last administered on 06:13; Start 06/08/16 at 06:00; Stop 06/09/16 at 12:05; Status DC Levothyroxine Sodium (Synthroid) 0.15 mg DAILY@06 PO ; Start 06/10/16 at 06:00; Stop 07/10/16 at 05:59 Loratadine (Claritin) 10 mg DAILY PO Last administered on 06/09/16 08:04; Start 06/08/16 at 09:00; Stop 07/08/16 at 08:59 Magnesium Hydroxide (Milk Of Magnesia) 30 ml DAILYPRN PRN PO CONSTIPATION; Start 06/08/16 at 02:00; Stop 07/08/16 at 01:59 Multivitamins (Theragram-M) 1 tab DAILY PO Last administered on 06/09/16 08:04 ; Start 06/08/16 at 09:00; Stop 07/08/16 at 08:59 Pantoprazole Sodium (Protonix) 40 mg DAILY PO Last administered on 06/09/16 08: 04; Start 06/08/16 at 09:00; Stop 07/08/16 at 08:59 Paroxetine HCl (PAXil) 60 mg DAILY PO Last administered on 06/09/16 08:04; Start 06/08/16 at 09:00; Stop 07/08/16 at 08:59 Quetiapine Fumarate (SEROquel XR) 300 mg QPM PO Last administered on 06/09/16 21:26; Start 06/08/16 at 21:00; Stop 07/08/16 at 20:59 Trazodone HCl (Desyrel) 50 mg QHSP PRN PO INSOMNIA; Start 06/08/16 at 02:00; Stop 07/08/16 at 01:59 Allergies Coded Allergies: Penicillins (Unverified Allergy, Intermediate, RASH, 08/06/12) Penicillins Cross Reactors (Unverified Allergy, Intermediate, RASH, 08/06/12 ) Oxycodone (Unverified Allergy, Mild, ITCH, RASH, 05/20/16) GABY CLAYTON MD Jun 09, 2016 23:50
--- NOTE | 2016-06-10 01:31 | EDDOCDS ---
Physician Documentation [facility] Name: Mars Elaine Age: 55 yrs Sex: Male : 1960 Arrival Date: 06/07/2016 Time: 14:[address] MD: Trent Jimenez D Disposition: 06/07 21:21 Critical Care: Critical care not applicable. Disposition: 06/07/16 21:22 Hospitalization ordered by Renan Chung for Inpatient Admission. Preliminary diagnosis are Major depressive disorder, recurrent severe without psychotic features, Suicide attempt - by hanging. - Bed requested for Admit. - Status is Inpatient Admission. tm5 - Condition is Stable. - Problem is new. - Symptoms are unchanged. Historical: - Allergies: PENICILLINS; oxycodone; - Home Meds: 1. loratadine 10 mg Oral tab 1 tab once daily (Last dose: 06/07/2016 08:00) 2. Paroxetine HCl Oral 60 mg once daily (Last dose: 06/07/2016 08:00) 3. levothyroxine 137 mcg Oral tab 1 tab once daily (Last dose: 06/07/2016 08:00) 4. aspirin 81 mg Oral tab 1 tab once daily (Last dose: 06/07/2016 08:00) 5. Tums Unknown Oral as needed (Last dose: Unknown) 6. pantoprazole 40 mg oral TbEC 1 tab once daily (Last dose: 06/07/2016 08:00) 7. docusate sodium 100 mg Oral cap as needed (Last dose: Unknown) 8. fenofibrate 54 mg oral tab 1 tab once daily (Last dose: 06/06/2016 12:00) 9. Seroquel XR 300 mg oral Tb24 1 tab once daily (Last dose: 06/06/2016 20:00) 10. multivitamin Oral tab daily (Last dose: 06/06/2016 20:00) 11. ferrous sulfate 325 mg (65 mg iron) Oral tab daily (Last dose: 06/06/2016 20:00) 12. atorvastatin 80 mg oral tab 1 tab once daily (Last dose: 06/06/2016 20:00) - PMHx: Anxiety Disorder; Depression; High Cholesterol; Hypothyroidism; PTSD; GERD; iron deficiency; Sleep Apnea w/ CPAP; - PSHx: Left shoulder bone spur removal; - Social history: Smoking status: Patient states former smoker of tobacco. No barriers to communication noted, The patient speaks fluent Turkmen. - Family history: Mother has/had Suicide. - : The pt / caregiver states he / she is not on anticoagulants. Home medication list is obtained from the patient, Note states that she picked up a prescription for Prazosin 1 mg p.o. QHS that patient was scheduled to begin tonight for his nightmare. Medication verified by Giovanni Merlos. - Exposure Risk Screening:: None identified. Vital Signs: 14:29 Pulse 72 MON; Pulse Ox 96% ; ja5 14:30 BP 128 / 85 (auto/); ja5 14:38 BP 125 / 85; Pulse 68; Resp 18; Temp 97.7(O); Pulse Ox 98% on R/A; Weight 114.76 kg / ct3 253 lbs (M); Height 5 ft. 9 in. (175.26 cm) (R); 14:45 BP 133 / 85 (auto/); jc4 14:45 Pulse 67 MON; Pulse Ox 96% ; jc4 15:00 BP 144 / 88 (auto/); jc4 15:02 Pulse 70 MON; Pulse Ox 99% ; jc4 15:15 BP 130 / 71 (auto/); jc4 15:15 Pulse 62 MON; Pulse Ox 100% ; jc4 15:30 BP 129 / 76 (auto/); jc4 15:30 Pulse 67 MON; Pulse Ox 97% ; jc4 15:45 BP 111 / 66 (auto/); jc4 15:45 Pulse 69 MON; Pulse Ox 93% ; jc4 16:00 BP 123 / 70 (auto/); jc4 16:01 Pulse 71 MON; Pulse Ox 97% ; jc4 16:14 Pulse 72 MON; Pulse Ox 98% ; ja5 16:15 BP 128 / 78 (auto/); ja5 16:29 Pulse 72 MON; Pulse Ox 94% ; ja5 16:30 BP 126 / 63 (auto/); ja5 16:59 Pulse 70 MON; Pulse Ox 96% ; ja5 17:00 BP 119 / 69 (auto/); ja5 17:14 Pulse 72 MON; Pulse Ox 96% ; ja5 17:15 BP 116 / 70 (auto/); ja5 17:29 Pulse 76 MON; Pulse Ox 97% ; ja5 17:30 BP 142 / 90 (auto/); ja5 18:40 BP 147 / 90; Pulse 75; Resp 20; Temp 97.3(T); Pulse Ox 94% on R/A; Pain 0/10; ja5 19:38 BP 141 / 76; Pulse 76; Resp 20; Pulse Ox 96% on R/A; Pain 0/10; tm5 20:00 BP 147 / 60 (auto/); tm5 20:00 Pulse 70 MON; Resp 18 S; Pulse Ox 95% on R/A; Pain 0/10; tm5 0208 00:19 Pulse 65; Resp 18; Temp 97.0; Pulse Ox 98% ; mas 00:26 BP 163 / 88; mas 06/07 14:38 Body Mass Index 37.36 (114.76 kg, 175.26 cm) ct3 MDM: 06/07 14:25 Consult PFS/PSA/Manager Security ordered. sd1 14:25 Consult PFS/PSA/Manager Security: Patient's case requires discussion with on-call sd1 Psychiatrist ordered. 14:25 PSA/PFS to call Nursing Green Building Energy Engineer, to enter patient data on [place] Safe Act if patient sd1 involuntarily admitted or transferred for SI or HI ordered. 14:25 Dianeticist/Pulse Ox/q 15 min VS ordered. sd1 14:25 Confirm accurate psychiatric medication list and times of last dosage ordered. sd1 14:25 Detain Pt Until Medically/PFS Cleared ordered. sd1 14:25 IV Saline Lock ordered. sd1 14:26 Acetaminophen Level Ordered. EDMS 14:26 Basic Metabolic Profile Ordered. EDMS 14:26 Complete Blood Count Ordered. EDMS 14:26 Drug Eval Toxicology ED Only Ordered. EDMS 14:26 Ethyl Alcohol (ethanol) Ordered. EDMS 14:26 Liver Profile Ordered. EDMS 14:26 Salicylate Level Ordered. EDMS 14:26 Thyroid Stimulating Hormone Ordered. EDMS 14:26 ECG WITH READING ER PHYS+CARDIAG ordered. EDMS 14:38 Chest, 1 View Ordered. EDMS 14:54 CARDIAC INJURY PROFILE Ordered. EDMS 14:54 TROPONIN Ordered. EDMS 15:23 Repeat EKG (put time details section) ordered. sd1 15:28 MAGNESIUM LEVEL Ordered. EDMS 15:55 Acetaminophen Level Reviewed. sd1 15:55 Complete Blood Count Reviewed. sd1 15:55 Ethyl Alcohol (ethanol) Reviewed. sd1 15:55 Salicylate Level Reviewed. sd1 15:55 Thyroid Stimulating Hormone Reviewed. sd1 15:55 CARDIAC INJURY PROFILE Reviewed. sd1 15:55 Basic Metabolic Profile Reviewed. sd1 15:55 Liver Profile Reviewed. sd1 15:55 TROPONIN Reviewed. sd1 15:55 Chest, 1 View Reviewed. sd1 16:16 Acetaminophen Level Reviewed. cs11 16:16 Ethyl Alcohol (ethanol) Reviewed. cs11 16:16 Salicylate Level Reviewed. cs11 16:16 Thyroid Stimulating Hormone Reviewed. cs11 16:16 CARDIAC INJURY PROFILE Reviewed. cs11 16:16 Basic Metabolic Profile Reviewed. cs11 16:16 Liver Profile Reviewed. cs11 16:16 TROPONIN Reviewed. cs11 16:16 MAGNESIUM LEVEL Reviewed. cs11 16:31 Financial registration complete. ks16 16:42 Repeat EKG (put time details section) complete. lbd 16:46 ECG WITH READING ER PHYS ordered. EDMS 16:59 Drug Eval Toxicology ED Only Reviewed. cs11 17:06 Misc Route Clerk Order ordered. cs11 17:07 BED REQUEST+ADM ordered. EDMS 17:08 [facility] Payment Agreement was scanned into [employer] and attached to record. [email or web address] 17:32 Misc Route Clerk Order complete. lbd 17:39 DUPLEX SCAN LIMITED (DOPPLER) Ordered. EDMS 17:51 REGULAR DIET PLASTIC ARRINGTON+DIET ordered. EDMS 18:42 Aspirin 324 mg PO once ordered. cs11 18:42 Metoprolol (Tartrate) 25 mg PO once ordered. cs11 18:46 Pt & Aptt Ordered. EDMS 18:53 Cardiac Marker Panel Ordered. EDMS 20:00 Cardiac Marker Panel Reviewed. pc 20:00 Pt & Aptt Reviewed. pc 20:00 DUPLEX SCAN LIMITED (DOPPLER) Reviewed. pc 20:29 Consult PFS/PSA/Manager Security complete. tm5 20:38 Consult PFS/PSA/Manager Security: Patient's case requires discussion with on-call cl Psychiatrist complete. 20:38 PSA/PFS to call Nursing Green Building Energy Engineer, to enter patient data [place] Safe [place] if patient cl involuntarily admitted or transferred for SI or HI complete. 21:21 [place] Safe Act reporting: The patient poses a significant risk to self or others, and pc PSA/PFS has notified the Nursing Green Building Energy Engineer and he/she will complete the required data collection specialist. Test interpretation: LAB - all labs as ordered have been reviewed, interpreted and considered in the overall management of the clinical presentation;. The patient has been re-examined and re-evaluated. There is no appreciated change of the patient's symptoms at this time. Disposition: The historical points, examination findings, and any diagnostic results supporting the provided diagnosis, were discussed with the patient or legal guardian. The need for further work-up and/or treatment in the hospital was explained. 22:37 [facility] Legal paperwork was scanned into [employer] and attached to record. 22:37 Admit to [facility]: ordered. EDMT 06/08 12:22 T-Sheet-- Draft Copy was scanned into [employer] and attached to record. gb 12:22 ECG/EKG was scanned into [employer] and attached to record. gb 12:22 Trend VS was scanned into [employer] and attached to record. gb 12:23 Radiology Report was scanned into [employer] and attached to record. gb 12:24 PCR was scanned into [employer] and attached to record. gb Administered Medications: 06/07 18:52 CANCELLED (Other Intervention Used): heparin (Thrombolytic Protocol, 12 units/kg/hr)) cs11 24608 units IV at 1000 units/hr once; Max. dose 1000units/hr. No Lovenox past 18hrs/ draw labs. 18:52 CANCELLED (Other Intervention Used): heparin (Thrombolytic Protocol, 60 units/kg)) 4000 cs11 units IVP once; max 4000 units. Ensure no Lovenox in past 18hr, labs drawn 18:58 Drug: Aspirin 324 mg [aspirin 81 mg chewable tablet (4 tabs)] Route: PO; ja5 19:31 Follow up: Response: No Adverse Reaction tm5 18:58 Drug: Metoprolol 25 mg [metoprolol tartrate 50 mg tablet (0.5 tabs)] Route: PO; ja5 19:31 Follow up: Response: No Adverse Reaction tm5 Signatures: Dispatcher [employer] EDMT Derik Siddiqui MD MD pc Delaney-Rowland, Sarah, MD MD sd1 Celestina Ozuna, Fretted Instrument Maker Hand Unit lbd Gabrielle, Elias, PSA PSA cl Kaleb Ramirez, PSA PSA cs Ludmila Magana, Reg Reg Yari Zamorano, RN RN [email or web address] Chidi Carpio DO DO cs11 Dalton Kristal, Reg Reg ks16 Lucrecia VazquezRN RN tm5 Grace Ramos RN RN ja5 The chart was reviewed and I authenticate all verbal orders and agree with the evaluation and treatment provided.Corrections: (The following items were deleted from the chart) 14:51 14:41 Home Meds: Seroquel XR 300 mg oral Tb24 1 tab once daily (Last Dose: 06/07/2016 [facility] 08:00); 5 14:51 14:41 Home Meds: atorvastatin 80 mg oral tab 1 tab once daily (Last Dose: 06/07/2016 [facility] 08:00); [facility] 14:51 14:41 Home Meds: multivitamin Oral tab daily (Last Dose: 06/07/2016 08:00); [facility] 14:51 14:41 Home Meds: ferrous sulfate 325 mg (65 mg iron) Oral tab daily (Last Dose: [facility] 06/07/2016 08:00); [facility] 14:51 14:41 Home Meds: fenofibrate 54 mg oral tab 1 tab once daily (Last Dose: 06/07/2016 [facility] 08:00); ja 14:54 14:44 CARDIAC INJURY PROFILE+LAB ordered. EDMS EDMS 14:54 14:44 TROPONIN+LAB ordered. EDMS EDMS 15:28 15:06 MAGNESIUM LEVEL+LAB ordered. EDMS EDMS 18:52 18:44 heparin (Thrombolytic Protocol, 12 units/kg/hr)) 56774 units IV at 1000 units/hr cs11 once; Max. dose 1000units/hr. No Lovenox past 18hrs/ draw labs. ordered. cs11 18:52 18:44 heparin (Thrombolytic Protocol, 60 units/kg)) 4000 units IVP once; max 4000 cs11 units. Ensure no Lovenox in past 18hr, labs drawn ordered. cs11 Attachments: 17:08 [facility] Payment Agreement [email or web address] 06/08 12:22 T-Sheet-- Draft Copy gb 12:22 ECG/EKG gb Chart Complete MTDD
--- NOTE | 2016-06-10 01:31 | EDDOCDS ---
Physician Documentation [facility] Name: Mars Elaine Age: 55 yrs Sex: Male : 1960 Arrival Date: 06/07/2016 Time: 14:[address] MD: Trent Jimenez D Disposition: 06/07 21:21 Critical Care: Critical care not applicable. Disposition: 06/07/16 21:22 Hospitalization ordered by Renan Chung for Inpatient Admission. Preliminary diagnosis are Major depressive disorder, recurrent severe without psychotic features, Suicide attempt - by hanging. - Bed requested for Admit. - Status is Inpatient Admission. tm5 - Condition is Stable. - Problem is new. - Symptoms are unchanged. Historical: - Allergies: PENICILLINS; oxycodone; - Home Meds: 1. loratadine 10 mg Oral tab 1 tab once daily (Last dose: 06/07/2016 08:00) 2. Paroxetine HCl Oral 60 mg once daily (Last dose: 06/07/2016 08:00) 3. levothyroxine 137 mcg Oral tab 1 tab once daily (Last dose: 06/07/2016 08:00) 4. aspirin 81 mg Oral tab 1 tab once daily (Last dose: 06/07/2016 08:00) 5. Tums Unknown Oral as needed (Last dose: Unknown) 6. pantoprazole 40 mg oral TbEC 1 tab once daily (Last dose: 06/07/2016 08:00) 7. docusate sodium 100 mg Oral cap as needed (Last dose: Unknown) 8. fenofibrate 54 mg oral tab 1 tab once daily (Last dose: 06/06/2016 12:00) 9. Seroquel XR 300 mg oral Tb24 1 tab once daily (Last dose: 06/06/2016 20:00) 10. multivitamin Oral tab daily (Last dose: 06/06/2016 20:00) 11. ferrous sulfate 325 mg (65 mg iron) Oral tab daily (Last dose: 06/06/2016 20:00) 12. atorvastatin 80 mg oral tab 1 tab once daily (Last dose: 06/06/2016 20:00) - PMHx: Anxiety Disorder; Depression; High Cholesterol; Hypothyroidism; PTSD; GERD; iron deficiency; Sleep Apnea w/ CPAP; - PSHx: Left shoulder bone spur removal; - Social history: Smoking status: Patient states former smoker of tobacco. No barriers to communication noted, The patient speaks fluent Sami. - Family history: Mother has/had Suicide. - : The pt / caregiver states he / she is not on anticoagulants. Home medication list is obtained from the patient, Note states that she picked up a prescription for Prazosin 1 mg p.o. QHS that patient was scheduled to begin tonight for his nightmare. Medication verified by Giovanni Merlos. - Exposure Risk Screening:: None identified. Vital Signs: 14:29 Pulse 72 MON; Pulse Ox 96% ; ja5 14:30 BP 128 / 85 (auto/); ja5 14:38 BP 125 / 85; Pulse 68; Resp 18; Temp 97.7(O); Pulse Ox 98% on R/A; Weight 114.76 kg / ct3 253 lbs (M); Height 5 ft. 9 in. (175.26 cm) (R); 14:45 BP 133 / 85 (auto/); jc4 14:45 Pulse 67 MON; Pulse Ox 96% ; jc4 15:00 BP 144 / 88 (auto/); jc4 15:02 Pulse 70 MON; Pulse Ox 99% ; jc4 15:15 BP 130 / 71 (auto/); jc4 15:15 Pulse 62 MON; Pulse Ox 100% ; jc4 15:30 BP 129 / 76 (auto/); jc4 15:30 Pulse 67 MON; Pulse Ox 97% ; jc4 15:45 BP 111 / 66 (auto/); jc4 15:45 Pulse 69 MON; Pulse Ox 93% ; jc4 16:00 BP 123 / 70 (auto/); jc4 16:01 Pulse 71 MON; Pulse Ox 97% ; jc4 16:14 Pulse 72 MON; Pulse Ox 98% ; ja5 16:15 BP 128 / 78 (auto/); ja5 16:29 Pulse 72 MON; Pulse Ox 94% ; ja5 16:30 BP 126 / 63 (auto/); ja5 16:59 Pulse 70 MON; Pulse Ox 96% ; ja5 17:00 BP 119 / 69 (auto/); ja5 17:14 Pulse 72 MON; Pulse Ox 96% ; ja5 17:15 BP 116 / 70 (auto/); ja5 17:29 Pulse 76 MON; Pulse Ox 97% ; ja5 17:30 BP 142 / 90 (auto/); ja5 18:40 BP 147 / 90; Pulse 75; Resp 20; Temp 97.3(T); Pulse Ox 94% on R/A; Pain 0/10; ja5 19:38 BP 141 / 76; Pulse 76; Resp 20; Pulse Ox 96% on R/A; Pain 0/10; tm5 20:00 BP 147 / 60 (auto/); tm5 20:00 Pulse 70 MON; Resp 18 S; Pulse Ox 95% on R/A; Pain 0/10; tm5 0208 00:19 Pulse 65; Resp 18; Temp 97.0; Pulse Ox 98% ; mas 00:26 BP 163 / 88; mas 06/07 14:38 Body Mass Index 37.36 (114.76 kg, 175.26 cm) ct3 MDM: 06/07 14:25 Consult PFS/PSA/Office Services Assistant ordered. sd1 14:25 Consult PFS/PSA/Office Services Assistant: Patient's case requires discussion with on-call sd1 Psychiatrist ordered. 14:25 PSA/PFS to call Nursing Ob Gyn Physician Assistant, to enter patient data on [place] Safe Act if patient sd1 involuntarily admitted or transferred for SI or HI ordered. 14:25 Sterile Tech/Pulse Ox/q 15 min VS ordered. sd1 14:25 Confirm accurate psychiatric medication list and times of last dosage ordered. sd1 14:25 Detain Pt Until Medically/PFS Cleared ordered. sd1 14:25 IV Saline Lock ordered. sd1 14:26 Acetaminophen Level Ordered. EDMS 14:26 Basic Metabolic Profile Ordered. EDMS 14:26 Complete Blood Count Ordered. EDMS 14:26 Drug Eval Toxicology ED Only Ordered. EDMS 14:26 Ethyl Alcohol (ethanol) Ordered. EDMS 14:26 Liver Profile Ordered. EDMS 14:26 Salicylate Level Ordered. EDMS 14:26 Thyroid Stimulating Hormone Ordered. EDMS 14:26 ECG WITH READING ER PHYS+CARDIAG ordered. EDMS 14:38 Chest, 1 View Ordered. EDMS 14:54 CARDIAC INJURY PROFILE Ordered. EDMS 14:54 TROPONIN Ordered. EDMS 15:23 Repeat EKG (put time details section) ordered. sd1 15:28 MAGNESIUM LEVEL Ordered. EDMS 15:55 Acetaminophen Level Reviewed. sd1 15:55 Complete Blood Count Reviewed. sd1 15:55 Ethyl Alcohol (ethanol) Reviewed. sd1 15:55 Salicylate Level Reviewed. sd1 15:55 Thyroid Stimulating Hormone Reviewed. sd1 15:55 CARDIAC INJURY PROFILE Reviewed. sd1 15:55 Basic Metabolic Profile Reviewed. sd1 15:55 Liver Profile Reviewed. sd1 15:55 TROPONIN Reviewed. sd1 15:55 Chest, 1 View Reviewed. sd1 16:16 Acetaminophen Level Reviewed. cs11 16:16 Ethyl Alcohol (ethanol) Reviewed. cs11 16:16 Salicylate Level Reviewed. cs11 16:16 Thyroid Stimulating Hormone Reviewed. cs11 16:16 CARDIAC INJURY PROFILE Reviewed. cs11 16:16 Basic Metabolic Profile Reviewed. cs11 16:16 Liver Profile Reviewed. cs11 16:16 TROPONIN Reviewed. cs11 16:16 MAGNESIUM LEVEL Reviewed. cs11 16:31 Financial registration complete. ks16 16:42 Repeat EKG (put time details section) complete. lbd 16:46 ECG WITH READING ER PHYS ordered. EDMS 16:59 Drug Eval Toxicology ED Only Reviewed. cs11 17:06 Misc Tucking Machine Operator Order ordered. cs11 17:07 BED REQUEST+ADM ordered. EDMS 17:08 [facility] Payment Agreement was scanned into [employer] and attached to record. ks16 17:32 Misc Tucking Machine Operator Order complete. lbd 17:39 DUPLEX SCAN LIMITED (DOPPLER) Ordered. EDMS 17:51 REGULAR DIET PLASTIC ARRINGTON+DIET ordered. EDMS 18:42 Aspirin 324 mg PO once ordered. cs11 18:42 Metoprolol (Tartrate) 25 mg PO once ordered. cs11 18:46 Pt & Aptt Ordered. EDMS 18:53 Cardiac Marker Panel Ordered. EDMS 20:00 Cardiac Marker Panel Reviewed. pc 20:00 Pt & Aptt Reviewed. pc 20:00 DUPLEX SCAN LIMITED (DOPPLER) Reviewed. pc 20:29 Consult PFS/PSA/Office Services Assistant complete. tm5 20:38 Consult PFS/PSA/Office Services Assistant: Patient's case requires discussion with on-call cl Psychiatrist complete. 20:38 PSA/PFS to call Nursing Ob Gyn Physician Assistant, to enter patient data [place] Safe [place] if patient cl involuntarily admitted or transferred for SI or HI complete. 21:21 [place] Safe Act reporting: The patient poses a significant risk to self or others, and pc PSA/PFS has notified the Nursing Ob Gyn Physician Assistant and he/she will complete the required data typist. Test interpretation: LAB - all labs as ordered have been reviewed, interpreted and considered in the overall management of the clinical presentation;. The patient has been re-examined and re-evaluated. There is no appreciated change of the patient's symptoms at this time. Disposition: The historical points, examination findings, and any diagnostic results supporting the provided diagnosis, were discussed with the patient or legal guardian. The need for further work-up and/or treatment in the hospital was explained. 22:37 [facility] Legal paperwork was scanned into [employer] and attached to record. 22:37 Admit to [facility]: ordered. EDGA 06/08 12:22 T-Sheet-- Draft Copy was scanned into [employer] and attached to record. gb 12:22 ECG/EKG was scanned into [employer] and attached to record. gb 12:22 Trend VS was scanned into [employer] and attached to record. gb 12:23 Radiology Report was scanned into [employer] and attached to record. gb 12:24 PCR was scanned into [employer] and attached to record. gb Administered Medications: 06/07 18:52 CANCELLED (Other Intervention Used): heparin (Thrombolytic Protocol, 12 units/kg/hr)) cs11 51210 units IV at 1000 units/hr once; Max. dose 1000units/hr. No Lovenox past 18hrs/ draw labs. 18:52 CANCELLED (Other Intervention Used): heparin (Thrombolytic Protocol, 60 units/kg)) 4000 cs11 units IVP once; max 4000 units. Ensure no Lovenox in past 18hr, labs drawn 18:58 Drug: Aspirin 324 mg [aspirin 81 mg chewable tablet (4 tabs)] Route: PO; ja5 19:31 Follow up: Response: No Adverse Reaction tm5 18:58 Drug: Metoprolol 25 mg [metoprolol tartrate 50 mg tablet (0.5 tabs)] Route: PO; ja5 19:31 Follow up: Response: No Adverse Reaction tm5 Signatures: Dispatcher [employer] EDGA Derik Siddiqui MD MD pc Delaney-Rowland, Sarah, MD MD sd1 Celestina Ozuna, Insurance Sales Specialist Unit lbd Gabrielle, Elias, PSA PSA cl Kaleb Ramirez, PSA PSA cs Ludmila Magana, Reg Reg Yari Zamroano, RN RN jc4 Chidi Carpio DO DO cs11 Dalton Kristal, Reg Reg ks16 Lucrecia VazquezRN RN tm5 Grace Ramos RN RN ja5 The chart was reviewed and I authenticate all verbal orders and agree with the evaluation and treatment provided.Corrections: (The following items were deleted from the chart) 14:51 14:41 Home Meds: Seroquel XR 300 mg oral Tb24 1 tab once daily (Last Dose: 06/07/2016 [facility] 08:00); 5 14:51 14:41 Home Meds: atorvastatin 80 mg oral tab 1 tab once daily (Last Dose: 06/07/2016 [facility] 08:00); [facility] 14:51 14:41 Home Meds: multivitamin Oral tab daily (Last Dose: 06/07/2016 08:00); [facility] 14:51 14:41 Home Meds: ferrous sulfate 325 mg (65 mg iron) Oral tab daily (Last Dose: [facility] 06/07/2016 08:00); [facility] 14:51 14:41 Home Meds: fenofibrate 54 mg oral tab 1 tab once daily (Last Dose: 06/07/2016 [facility] 08:00); ja 14:54 14:44 CARDIAC INJURY PROFILE+LAB ordered. EDMS EDMS 14:54 14:44 TROPONIN+LAB ordered. EDMS EDMS 15:28 15:06 MAGNESIUM LEVEL+LAB ordered. EDMS EDMS 18:52 18:44 heparin (Thrombolytic Protocol, 12 units/kg/hr)) 78231 units IV at 1000 units/hr cs11 once; Max. dose 1000units/hr. No Lovenox past 18hrs/ draw labs. ordered. cs11 18:52 18:44 heparin (Thrombolytic Protocol, 60 units/kg)) 4000 units IVP once; max 4000 cs11 units. Ensure no Lovenox in past 18hr, labs drawn ordered. cs11 Attachments: 17:08 [facility] Payment Agreement [email or web address] 06/08 12:22 T-Sheet-- Draft Copy gb 12:22 ECG/EKG gb Chart Complete MTDD
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
[2016-06-10] MEDS: LEVOTHYROXINE 0.15 MG TAB (150 MCG) PO SCH (06:12)
[2016-06-10 06:34] VITALS: BP 142/92
[2016-06-10] MEDS: MULTIVITAMINS/MINERALS THERAP 1 TAB PO SCH (08:06)
[2016-06-10] MEDS: PANTOPRAZOLE 40MG TAB (PROTONIX) PO SCH (08:06)
[2016-06-10] MEDS: ASPIRIN 81 MG ENTERIC TAB PO SCH (08:06)
[2016-06-10] MEDS: PARoxetine 20 MG TAB PO SCH (08:06)
[2016-06-10] MEDS: FERROUS SULFATE 325MG TAB PO SCH ×2 (08:06→20:58)
[2016-06-10] MEDS: LORATADINE 10 MG TAB PO SCH (08:06)
[2016-06-10] MEDS: amLODIPine 5 MG TAB PO SCH (08:06)
[2016-06-10] MEDS: FENOFIBRATE 48 MG TAB (TRICOR) PO SCH (13:07)
[2016-06-10 18:00] VITALS: BP 148/82
[2016-06-10] MEDS: QUEtiapine 300 MG XR TABLET(SEROQUEL XR) PO SCH (20:57)
[2016-06-10] MEDS: ATORVASTATIN 20 MG TAB PO SCH (20:58)
[2016-06-11] MEDS: LEVOTHYROXINE 0.15 MG TAB (150 MCG) PO SCH (06:15)
[2016-06-11 06:16] VITALS: BP 118/74
[2016-06-11] MEDS: PANTOPRAZOLE 40MG TAB (PROTONIX) PO SCH (08:35)
[2016-06-11] MEDS: amLODIPine 5 MG TAB PO SCH (08:36)
[2016-06-11] MEDS: MULTIVITAMINS/MINERALS THERAP 1 TAB PO SCH (08:36)
[2016-06-11] MEDS: ASPIRIN 81 MG ENTERIC TAB PO SCH (08:36)
[2016-06-11] MEDS: PARoxetine 20 MG TAB PO SCH (08:36)
[2016-06-11] MEDS: LORATADINE 10 MG TAB PO SCH (08:36)
[2016-06-11] MEDS: FERROUS SULFATE 325MG TAB PO SCH ×2 (08:36→20:16)
--- NOTE | 2016-06-11 10:24 | IPNPDOC ---
[facility] Progress Note Progress Note DATE OF SERVICE: 06/10/16 Subjective: Patient reporting improved mood this morning. He reports fair sleep and appetite. Patient reports reflecting on his attempted hanging and feeling frustrated with his suicidal behavior, not being able to cope, and hurting his grandchildren. He reports he is the only father figure for his grand kids. He reports acknowledging the relationship he has with his 2 grandchildren and reports it is a protective one against future suicide attempts. Patient also upset by his drinking. He reports being aware of alcohol being a depressant and is frustrated by his use of the substance in the midst of his current depression. Patient educated alcohol also disinhibits behavior. Patient explained when depressed with SI, alcohol may be the trigger to attempting suicide. Patient acknowledged understanding. Today patient denies SI/HI and AH/VH. He is med compliant and denies med s/e's. Objective: VITAL SIGNS: Within normal limits LABORATORY DATA: Please see below. MENTAL STATUS EXAMINATION: 55year-old male who appears stated age, dressed in hospital attire, in NAD Speech: Is regular rate and rhythm, spontaneous Thought processes: Linear, Goal directed. Thought content: planning / future oriented / planning to be more social with and be more engaged in MHC Orientation: Alert and oriented to time, place and person and situation Recent and remote memory: Intact. Immediate short-term and long-term memory is: intact. Attention span and concentration: fair. Language: Normal. Fund of knowledge: good. Mood: euthymic Affect: broad, smiling at times PROBLEM LIST: 1. Suicidal ideations. 2. Depression. 3. Anxiety. 4. Risk for suicide, s/p suicide attempt by hanging 5. Risk for self-injury 6. Poor impulse control 7. Medication & Followup appt. Noncompliance ASSESSMENT: -MDD, R, S w/o PFs -PTSD PLAN: ------- 1.~ ~ Patient was admitted on a 9.30 legal status, 2.~ ~ Complete history was obtained. 3.~ ~ With patients permission, family will be contacted and database will be expanded. 4.~ ~ Continue current psychotropic regimen as regimen showing clinical benefit to depressive symptoms: Paxil at 60mg po daily for mood and anxiety Seroquel 300mg po qhs for mood augmentation, impulsivity, agitation , insomnia Prazosin 1mg po qhs for NMs 5.~ ~ Patient will be provided with protected environment. 6.~ ~ Patient will be treated with individual, group, and milieu therapies. 7.~ ~ Patient will receive supportive psych-education. Discharge appts: [facility] - Todd [facility] - Dr. Green is current provider, has an appt set. Counseling - Gustavo Duncan, has an appt set. PCP - Dr. Jimenez, has an appt set. Estimated date of discharge : Monday06/13/16 TIME SPENT ON CARE: 30 minutes Vital Signs Vital Signs Date Time Temp Pulse Resp B/P Pulse Ox O2 Delivery O2 Flow Rate FiO2 06/11/16 08:36 87 175/90 06/11/16 06:16 98.0 18 06/08/16 00:38 Room Air Current Medications Current Medications Acetaminophen (Tylenol Tab) 650 mg Q6HP PRN PO HEADACHE or DISCOMFORT; Start at 02:00; Stop 07/08/16 at 01:59 Al Hydrox/Mg Hydrox/Simethicone (Mylanta) 30 ml Q4HP PRN PO HEARTBURN/ INDIGESTION; Start 06/08/16 at 02:00; Stop 07/08/16 at 01:59 Amlodipine Besylate (Norvasc) 5 mg DAILY PO Last administered on 06/11/16 08: 36; Start 06/09/16 at 09:00; Stop 07/09/16 at 08:59 Aspirin (Ecotrin) 81 mg DAILY PO Last administered on 06/11/16 08:36; Start at 09:00; Stop 07/08/16 at 08:59 Atorvastatin Calcium (Lipitor) 80 mg DAILY PO ; Start 06/08/16 at 09:00; Stop 06/08/16 at 09:00; Status DC Atorvastatin Calcium (Lipitor) 80 mg QHS PO Last administered on 06/10/16 20: 58; Start 06/08/16 at 21:00; Stop 07/08/16 at 20:59 Docusate Sodium (Colace) 100 mg DAILYPRN PRN PO CONSTIPATION; Start 06/08/16 at 02:00; Stop 07/08/16 at 01:59 Fenofibrate (Tricor) 48 mg DAILY@12 PO Last administered on 06/10/16 13:07; Start 06/08/16 at 12:00; Stop 07/08/16 at 11:59 Fenofibrate (Tricor) 54 mg DAILY PO ; Start 06/08/16 at 09:00; Stop 06/08/16 at 09 :00; Status DC Ferrous Sulfate (Ferrous Sulfate) 325 mg BID PO Last administered on 06/11/16 08:36; Start 06/09/16 at 21:00; Stop 07/09/16 at 20:59 Ferrous Sulfate (Ferrous Sulfate) 325 mg DAILY PO Last administered on 08:04; Start 06/08/16 at 09:00; Stop 06/09/16 at 12:05; Status DC Home Med (Med Rec Complete!) ASDIRECTED XX ; Start 06/07/16 at 17:45; Stop at 21:21; Status DC Levothyroxine Sodium (Synthroid) 0.137 mg DAILY@06 PO Last administered on 06:13; Start 06/08/16 at 06:00; Stop 06/09/16 at 12:05; Status DC Levothyroxine Sodium (Synthroid) 0.15 mg DAILY@06 PO Last administered on 06:15; Start 06/10/16 at 06:00; Stop 07/10/16 at 05:59 Loratadine (Claritin) 10 mg DAILY PO Last administered on 06/11/16 08:36; Start 06/08/16 at 09:00; Stop 07/08/16 at 08:59 Magnesium Hydroxide (Milk Of Magnesia) 30 ml DAILYPRN PRN PO CONSTIPATION; Start 06/08/16 at 02:00; Stop 07/08/16 at 01:59 Multivitamins (Theragram-M) 1 tab DAILY PO Last administered on 06/11/16 08:36 ; Start 06/08/16 at 09:00; Stop 07/08/16 at 08:59 Pantoprazole Sodium (Protonix) 40 mg DAILY PO Last administered on 06/11/16 08 :35; Start 06/08/16 at 09:00; Stop 07/08/16 at 08:59 Paroxetine HCl (PAXil) 60 mg DAILY PO Last administered on 06/11/16 08:36; Start 06/08/16 at 09:00; Stop 07/08/16 at 08:59 Quetiapine Fumarate (SEROquel XR) 300 mg QPM PO Last administered on 06/10/16 20:57; Start 06/08/16 at 21:00; Stop 07/08/16 at 20:59 Trazodone HCl (Desyrel) 50 mg QHSP PRN PO INSOMNIA; Start 06/08/16 at 02:00; Stop 07/08/16 at 01:59 Allergies Coded Allergies: Penicillins (Unverified Allergy, Intermediate, RASH, 08/06/12) Penicillins Cross Reactors (Unverified Allergy, Intermediate, RASH, 08/06/12 ) Oxycodone (Unverified Allergy, Mild, ITCH, RASH, 05/20/16) GABY CLAYTON MD Jun 11, 2016 10:24
[2016-06-11] MEDS: FENOFIBRATE 48 MG TAB (TRICOR) PO SCH (11:57)
[2016-06-11 18:32] VITALS: BP 142/78
[2016-06-11] MEDS: ATORVASTATIN 20 MG TAB PO SCH (20:16)
[2016-06-11] MEDS: QUEtiapine 300 MG XR TABLET(SEROQUEL XR) PO SCH (20:16)
[2016-06-12] MEDS: LEVOTHYROXINE 0.15 MG TAB (150 MCG) PO SCH (06:07)
[2016-06-12 06:30] VITALS: BP 152/92
--- NOTE | 2016-06-12 07:20 | IPN ---
DATE: 06/11/2016 He has been seen by Dr. Tena, his assigned psychiatric, earlier today. I saw him very briefly, since he has already been seen. The patient indicated he was feeling better, and that things are improving overall, and he and Dr. Tena have apparently discussed further plans for the patient. The patient was cooperative, coherent in the few minutes that we met. The assessment and plan are deferred to Dr. Tena, who has already seen him today. The patient did not display any evidence of any suicidal thoughts, and appeared quite coherent. HILDA
[2016-06-12] MEDS: PARoxetine 20 MG TAB PO SCH (08:36)
[2016-06-12] MEDS: LORATADINE 10 MG TAB PO SCH (08:36)
[2016-06-12] MEDS: MULTIVITAMINS/MINERALS THERAP 1 TAB PO SCH (08:36)
[2016-06-12] MEDS: PANTOPRAZOLE 40MG TAB (PROTONIX) PO SCH (08:36)
[2016-06-12] MEDS: FERROUS SULFATE 325MG TAB PO SCH ×2 (08:36→20:36)
[2016-06-12] MEDS: ASPIRIN 81 MG ENTERIC TAB PO SCH (08:36)
[2016-06-12] MEDS: amLODIPine 5 MG TAB PO SCH (08:37)
[2016-06-12] MEDS: FENOFIBRATE 48 MG TAB (TRICOR) PO SCH (11:49)
[2016-06-12 18:00] VITALS: BP 138/72
[2016-06-12] MEDS: ATORVASTATIN 20 MG TAB PO SCH (20:36)
[2016-06-12] MEDS: QUEtiapine 300 MG XR TABLET(SEROQUEL XR) PO SCH (20:36)
[2016-06-13 06:00] VITALS: BP 108/63
[2016-06-13] MEDS: LEVOTHYROXINE 0.15 MG TAB (150 MCG) PO SCH (06:28)
--- NOTE | 2016-06-13 08:49 | DS.PDOC ---
[facility] Discharge Summary Discharge Summary DATE OF ADMISSION: Jun 08, 2016 at 00:32 DISCHARGE DIAGNOSES: -MDD, R, S w/o PFs -PTSD MENTAL STATUS EXAMINATION ON DISCHARGE: 55year-old male who appears stated age, dressed in hospital attire, in NAD Speech: Is regular rate and rhythm, spontaneous Thought processes: Linear, Goal directed. Thought content: planning / future oriented / planning to be more social with and be more engaged in MHC Orientation: Alert and oriented to time, place and person and situation Recent and remote memory: Intact. Immediate short-term and long-term memory is: intact. Attention span and concentration: fair. Language: Normal. Fund of knowledge: good. Mood: euthymic Affect: broad, smiling at times REASON FOR ADMISSION: Patient is a 55-year-old male with PPHx significant for MDD, R, S and PTSD. This is patient's 3rd suicide attempt, last was in 01/2015. Patient hospitalized here at [facility] for carbon monoxide poisoning. Patient presented 06/07/16 to [facility] emergency department by ambulance from his home after being found hanging by his . Patient reports worsening depressive symptoms x 2 months. Patient identifies " my meds stopped working" a factor in his symptom decompensation. Patient also reports he's been out of work for the last year. He stated, "I had the only income". Patient's is on disability. Patient reports his depression and lack of energy to work precipitated him losing his job. Patient reports financial stressors and he and his currently, "living off our credit cards " as the primary trigger. Patient reports informing his PCP - Dr. Jimenez of his worsening depression. Patient was referred to therapist Gustavo Carrillo approx 1.5 months ago, patient's current therapist. Patient reports he was seen weekly by Gloria Dakota. Patient reports he was recently decreased to every 2 wks appt. schedule. Patient reports Gloria Dakota also referred patient to Dr. Crandall at [facility]. He reports seeing Dr. Crandall for the first time approx 10 days prior to this admission. At their first meeting, patient's Paxil was increased from 40mg to 60mg and Prozac started at 1mg po qhs. Seroquel was continued at 300mg po qhs for anxiety / agitation / insomnia. Patient reports he 's been compliant with the regimen. He reports being compliant with the prior regimen which he's been on since the 01/2015 hospitalization. Patient endorses having 2 40oz beers around time of his suicide attempt. He denies alcohol use d/o symptoms. He reports having fews on a monthly basis. He denies use of illicit substances. He reports approx weekly use of cannabis, 3-4 hits at a time. He reports no use of cannabis in 3 wks due to not being able to afford it. Patient reports no hx of substance rehab programs. He reports no hx of DUI/DWAI arrests. CONSULTANTS INVOLVED: NONE HOSPITAL COURSE: [Patient admitted to [facility]. Patient started on the below noted meds. He responded in mood, sleep, and overall benefitted from inpatient stay. He reported improvements in his mood daily and on date of discharge reported no SI.HI or AH.VH. Patient is engaged in his mhc. He acknowledges understanding of the importance of med compliance.] MEDICATIONS ON DISCHARGE: Paxil 60mg po daily for mood and anxiety Seroquel 300mg po qhs for mood augmentation, impulsivity, agitation, insomnia Prazosin 1mg po qhs for NMs PLAN/FOLLOWUP ARRANGEMENTS: [[facility] HAS PCP AND MHC APPT WITHIN 2 WEEKS OF DISCHARGE]. The amount of time spent in the coordination of care for this patient was approximately [45] minutes. Vital Signs Vital Sign - Last 24 Hours 06/12/16 06/13/16 18:00 06:00 Temp 97.2 95.9 Pulse 88 73 Resp 18 18 B/P 138/72 108/63 Medications Scheduled Amlodipine Besylate (Amlodipine Besylate) 5 Mg Tab #30 5 MG PO DAILY HTN Aspirin (Aspirin) 81 Mg Tab 81 MG PO Q2D anticoagulant (Reported) Atorvastatin Calcium (Atorvastatin Calcium) 80 Mg Tab 80 MG PO QHS hyperlipidemia (Reported) Fenofibrate (Fenofibrate) 54 Mg Tab 54 MG PO DAILY hyperlipidemia (Reported) TAKES AT NOON Ferrous Sulfate (Iron (Ferrous Sulfate)) 50 Mg Tab 325 MG PO BID supplement ( Reported) Levothyroxine Sodium (Levoxyl) 137 Mcg Tab 150 MCG PO DAILY hypothyroidism ( Reported) Levothyroxine Sodium (Synthroid) 150 Mcg Tab #30 0.15 MG PO DAILY@06 supplement Loratadine (Claritin) 10 Mg Cap 10 MG PO DAILY allergies (Reported) Multivitamins *[facility] STOCKED* (Thera M Plus *[facility] STOCKED*) 1 Tab Tab 1 TAB PO QHS supplement (Reported) Pantoprazole Sodium Sesquihydr (Protonix) 40 Mg Tab 40 MG PO DAILY GERD ( Reported) Paroxetine (Paroxetine HCl) 20 Mg Tab #7 60 MG PO DAILY DEPRESSION Quetiapine Fumarate (Seroquel Xr) 300 Mg [place] #7 300 MG PO QPM MOOD Scheduled PRN Calcium Carbonate (Tums) 500 Mg Chw 500 MG PO PRN PRN PRN HEARTBURN/INDIGESTION (Reported) Docusate Sodium (Docusate Sodium) 100 Mg Cap 100 MG PO DAILY PRN PRN CONSTIPATION (Reported) Trazodone HCl (Trazodone HCl) 50 Mg Tab #7 50 MG PO QHSP PRN PRN INSOMNIA Allergies Coded Allergies: Penicillins (Unverified Allergy, Intermediate, RASH, 08/06/12) Penicillins Cross Reactors (Unverified Allergy, Intermediate, RASH, 08/06/12 ) Oxycodone (Unverified Allergy, Mild, ITCH, RASH, 05/20/16) GABY CLAYTON MD Jun 13, 2016 08:49
[2016-06-13] MEDS ORDERED: AMLO5TAB2 PO (08:54)
[2016-06-13] MEDS ORDERED: LEVO150T7 PO (08:54)
[2016-06-13] MEDS ORDERED: PARO20TA2 PO (08:58)
[2016-06-13] MEDS ORDERED: QUET30XR PO (08:58)
[2016-06-13] MEDS ORDERED: TRAZO50TA PO (08:58)
[2016-06-13] MEDS: LORATADINE 10 MG TAB PO SCH (09:02)
[2016-06-13] MEDS: PARoxetine 20 MG TAB PO SCH (09:02)
[2016-06-13] MEDS: FERROUS SULFATE 325MG TAB PO SCH (09:02)
[2016-06-13] MEDS: ASPIRIN 81 MG ENTERIC TAB PO SCH (09:02)
[2016-06-13 09:03] VITALS: BP 140/78
[2016-06-13] MEDS: amLODIPine 5 MG TAB PO SCH (09:03)
[2016-06-13] MEDS: MULTIVITAMINS/MINERALS THERAP 1 TAB PO SCH (09:03)
[2016-06-13] MEDS: PANTOPRAZOLE 40MG TAB (PROTONIX) PO SCH (09:03)
[2016-06-13] MEDS: FENOFIBRATE 48 MG TAB (TRICOR) PO SCH (11:47)
== END 2016-06-13 13:00 | disposition home or self-care (01) | DRG 751 ==
LOC: M ED 14:19 → M PSY 06-08 00:32
PROVIDERS: ADMIT Psychiatry & Neurology Psychiatry; ATTEND Psychiatry & Neurology Psychiatry
DX: F33.2 Major depressive disorder, recurrent severe without psychotic features (principal); I10 Essential (primary) hypertension; F43.10 Post-traumatic stress disorder, unspecified; Z79.899 Other long term (current) drug therapy; Z79.82 Long term (current) use of aspirin; Z88.0 Allergy status to penicillin; Z88.5 Allergy status to narcotic agent; G47.33 Obstructive sleep apnea (adult) (pediatric); E03.9 Hypothyroidism, unspecified; K21.9 Gastro-esophageal reflux disease without esophagitis; D50.9 Iron deficiency anemia, unspecified; Z87.891 Personal history of nicotine dependence

== ENCOUNTER → 2016-06-20 | Outpatient (REF) | payer OTHER, MEDICAID ==
[~2016-06-20] MED LIST changes: +AMLO5TAB2 PO; +ASPI81TA7 PO; +DOCU100C PO; +LEVO137T14 PO; +LEVO150T7 PO; +PARO20TA2 PO; +PAXI30TA11 PO; +PRAZ1CAP PO; +TRAZO50TA PO; +TUMS500C PO; +VITMTA PO
[2016-06-20 17:58] LABS: AMPHETAMINES URINE REFLEX NEGATIVE (NEGATIVE); BARBITURATES URINE REFLEX NEGATIVE (NEGATIVE); BENZODIAZEPINES URINE REFLEX NEGATIVE (NEGATIVE)
[2016-06-20 17:59] LABS: COCAINE METABOLITE URINE REFLE NEGATIVE (NEGATIVE); METHADONE URINE REFLEX NEGATIVE (NEGATIVE); OPIATES URINE REFLEX NEGATIVE (NEGATIVE); PHENCYCLIDINE URINE REFLEX NEGATIVE (NEGATIVE)
== END ==
LOC: M OUTALCOH 16:48
PROVIDERS: ATTEND Psychiatry & Neurology Psychiatry
DX: F12.10 Cannabis abuse, uncomplicated (principal)

== ENCOUNTER → 2016-06-29 | Outpatient (REF) | payer MEDICAID, OTHER ==
[2016-07-01 14:34] LABS: CONTROL LINE INT CTR LINE PRESENT; TRICYCLIC ANTIDEPRESS UR REFL NEGATIVE (NEGATIVE)
== END ==
LOC: M OUTALCOH 14:05
PROVIDERS: ATTEND Psychiatry & Neurology Psychiatry
DX: F12.10 Cannabis abuse, uncomplicated (principal)

== ENCOUNTER → 2016-07-01 | Outpatient (CLI) | payer MEDICAID | LOC: M OUTALCOH 07:53 | PROVIDERS: ATTEND Psychiatry & Neurology Psychiatry | DX: Z13.9 Encounter for screening, unspecified (principal); F12.20 Cannabis dependence, uncomplicated; F10.10 Alcohol abuse, uncomplicated ==

== ENCOUNTER 2016-07-14 11:18 | Outpatient (RCR) | payer MEDICAID | END 2016-07-29 | LOC: M OUTALCOH 11:18 | PROVIDERS: ATTEND Psychiatry & Neurology Psychiatry | DX: F12.20 Cannabis dependence, uncomplicated (principal); F10.10 Alcohol abuse, uncomplicated ==

== ENCOUNTER 2016-09-08 14:22 | Inpatient (IN) | payer MEDICAID, OTHER ==
[~2016-09-08] VITALS: Ht 175.3 cm; Wt 108.2 kg
[~2016-09-08 14:22] MED LIST changes: -PARO20TA2 PO; +PARO20TA3 PO; -PARO40TA PO; +PARO40TA2 PO
[2016-09-08 15:51] LABS: MEAN CORPUSCULAR HEMOGLOBIN 30.6 pg (27.0-33.0); MEAN CORPUSCULAR HGB CONC 33.3 g/dl (32.0-36.5); RED CELL DISTRIBUTION WIDTH 15.2 % (11.5-14.5); WHITE BLOOD COUNT 9.1 K/mm3 (4.0-10.0)
[2016-09-08 16:31] LABS: METHADONE URINE NEGATIVE (NEGATIVE)
[2016-09-08 16:39] LABS: ALBUMIN 4.8 GM/DL (3.2-5.2); ALBUMIN/GLOBULIN RATIO 1.23 (1.00-1.93); ALKALINE PHOSPHATASE 106 U/L (45-117); ALT/SGPT 42 U/L (12-78); ANION GAP 9 MEQ/L (8-16); AST/SGOT 22 U/L (15-37); BILIRUBIN,DIRECT 0.2 MG/DL (0.0-0.2); BILIRUBIN,TOTAL 0.7 MG/DL (0.2-1.0); BLOOD UREA NITROGEN 11 MG/DL (7-18); CALCIUM LEVEL 9.4 MG/DL (8.5-10.1); CARBON DIOXIDE LEVEL 25 MEQ/L (21-32); CHLORIDE LEVEL 108 MEQ/L (98-107); CREATININE FOR GFR 1.12 MG/DL (0.70-1.30); GLOMERULAR FILTRATION RATE > 60.0 (>56); GLUCOSE, FASTING 103 MG/DL (70-105); POTASSIUM SERUM 3.9 MEQ/L (3.5-5.1); SODIUM LEVEL 142 MEQ/L (136-145); TOTAL PROTEIN 8.7 GM/DL (6.4-8.2)
[2016-09-08] MEDS ORDERED: AMLO10TA2 PO (20:13)
[2016-09-08] MEDS ORDERED: LEVO150T42 PO (20:13)
[2016-09-08] MEDS ORDERED: PARO30TA70 PO (20:13)
[2016-09-08] MEDS ORDERED: QUET300T49 PO (20:13)
[2016-09-08] MEDS ORDERED: CYCL5TA PO (20:13)
[2016-09-08 21:02] VITALS: BP 157/93
[2016-09-08] MEDS ORDERED: MOM 30ML SUSPENSION UDC PO PRN (21:45)
[2016-09-08] MEDS ORDERED: CALCIUM CARBONATE 500 MG CHEW U/D PO PRN (21:45)
[2016-09-08] MEDS ORDERED: MAALOX 30 ML SUSP *UDC PO PRN (21:45)
[2016-09-08] MEDS ORDERED: CYCLOBENZAPRINE 10 MG TAB PO PRN (21:45)
[2016-09-08] MEDS ORDERED: ACETAMINOPHEN TAB 650MG DOSE (2X325MG) PO PRN (21:45)
[2016-09-08] MEDS: traZODone 50 MG TAB PO PRN (22:02)
[2016-09-09 06:08] VITALS: BP 134/86
[2016-09-09] MEDS: LEVOTHYROXINE 0.15 MG TAB (150 MCG) PO SCH (06:09)
[2016-09-09] MEDS: FENOFIBRATE 48 MG TAB (TRICOR) PO SCH (08:13)
[2016-09-09] MEDS: amLODIPine 10 MG TAB PO SCH (08:13)
[2016-09-09] MEDS: PANTOPRAZOLE 40MG TAB (PROTONIX) PO SCH (08:13)
[2016-09-09] MEDS: FERROUS SULFATE 325MG TAB PO SCH ×2 (08:13→21:15)
[2016-09-09] MEDS: MULTIVITAMINS/MINERALS THERAP 1 TAB PO SCH (08:13)
[2016-09-09] MEDS: LORATADINE 10 MG TAB PO SCH (08:13)
[2016-09-09] MEDS ORDERED: PARoxetine 20 MG TAB PO SCH (09:00)
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
[2016-09-09 18:00] VITALS: BP 155/83
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
[2016-09-09] MEDS ORDERED: QUEtiapine 300 MG XR TABLET(SEROQUEL XR) PO SCH (21:00)
[2016-09-09] MEDS: QUEtiapine FUMARATE 100 MG TAB PO SCH (21:15)
[2016-09-09] MEDS: ATORVASTATIN 20 MG TAB PO SCH (21:16)
[2016-09-10] MEDS: LEVOTHYROXINE 0.15 MG TAB (150 MCG) PO SCH (06:23)
[2016-09-10 06:27] VITALS: BP 158/88
[2016-09-10 06:29] VITALS: BP 158/88
[2016-09-10] MEDS: PANTOPRAZOLE 40MG TAB (PROTONIX) PO SCH (08:07)
[2016-09-10] MEDS: FENOFIBRATE 48 MG TAB (TRICOR) PO SCH (08:07)
[2016-09-10] MEDS: LORATADINE 10 MG TAB PO SCH (08:07)
[2016-09-10] MEDS: amLODIPine 10 MG TAB PO SCH (08:07)
[2016-09-10] MEDS: MULTIVITAMINS/MINERALS THERAP 1 TAB PO SCH (08:07)
[2016-09-10] MEDS: PARoxetine 10MG TABLET PO SCH (08:08)
[2016-09-10] MEDS: FERROUS SULFATE 325MG TAB PO SCH ×2 (08:08→20:05)
--- NOTE | 2016-09-10 17:14 | ECGEPIP ---
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 No 1st degree AV block compared with 06/07/2016 at 1551 hours. Electronically Signed On 09-10-2016 17:13:45 EDT by Prosper Cruz
[2016-09-10 18:00] VITALS: BP 151/92
[2016-09-10] MEDS: QUEtiapine FUMARATE 100 MG TAB PO SCH (20:05)
[2016-09-10] MEDS: ATORVASTATIN 20 MG TAB PO SCH (20:05)
[2016-09-10] MEDS: traZODone 50 MG TAB PO PRN (20:05)
[2016-09-11] MEDS: LEVOTHYROXINE 0.15 MG TAB (150 MCG) PO SCH (05:54)
[2016-09-11 06:33] VITALS: BP 137/87
[2016-09-11] MEDS: FENOFIBRATE 48 MG TAB (TRICOR) PO SCH (08:34)
[2016-09-11] MEDS: amLODIPine 10 MG TAB PO SCH (08:34)
[2016-09-11] MEDS: MULTIVITAMINS/MINERALS THERAP 1 TAB PO SCH (08:34)
[2016-09-11] MEDS: PANTOPRAZOLE 40MG TAB (PROTONIX) PO SCH (08:35)
[2016-09-11] MEDS: FERROUS SULFATE 325MG TAB PO SCH ×2 (08:35→20:21)
[2016-09-11] MEDS: ASPIRIN 81 MG ENTERIC TAB PO SCH (08:35)
[2016-09-11] MEDS: LORATADINE 10 MG TAB PO SCH (08:35)
[2016-09-11] MEDS: PARoxetine 10MG TABLET PO SCH (08:35)
--- NOTE | 2016-09-11 11:11 | IPN ---
DATE: 09/10/2016 56-year-old male with history of depression with history of three hospitalizations for suicide attempt, one by hanging and another by carbon dioxide poisoning. Patient made suicidal statement before admission. SUBJECTIVE: "I am feeling better". OBJECTIVE: Patient is improving slowly. Patient is back on his medication. He is denying any side effects and is motivated for treatment. No evidence of psychotic symptoms. MENTAL STATUS EXAMINATION: Patient is dressed in [facility]. Patient is clean and well groomed. Has fair eye contact. His speech is normal in rate, volume and articulation. Mood is depressed and anxious but improving. Affect is somewhat restricted but improving. No delusions or hallucinations. Memory, attention and concentration are fair. Patient is able to contract for safety and denies suicidal or homicidal ideation during the interview. Insight and judgment is limited. ASSESSMENT: 1. Major depressive disorder. 2. Posttraumatic stress disorder. 3. Rule out attention deficit hyperactivity disorder. 4. Marijuana dependency and alcohol abuse. PLAN: 1. Continue with Paxil 30 mg by mouth daily every morning. 2. Continue with Seroquel 100 mg by mouth daily at bedtime. 3. Continue with trazodone 50 mg by mouth daily at bedtime as needed for insomnia. 4. Continue medication management, individual and group therapy.
[2016-09-11 18:00] VITALS: BP 150/88
[2016-09-11] MEDS: ATORVASTATIN 20 MG TAB PO SCH (20:21)
[2016-09-11] MEDS: traZODone 50 MG TAB PO PRN (20:21)
[2016-09-11] MEDS: QUEtiapine FUMARATE 100 MG TAB PO SCH (20:21)
[2016-09-12] MEDS: LEVOTHYROXINE 0.15 MG TAB (150 MCG) PO SCH (06:05)
[2016-09-12 06:50] VITALS: BP 134/90
[2016-09-12] MEDS: PANTOPRAZOLE 40MG TAB (PROTONIX) PO SCH (08:21)
[2016-09-12] MEDS: FERROUS SULFATE 325MG TAB PO SCH ×2 (08:21→20:29)
[2016-09-12] MEDS: PARoxetine 10MG TABLET PO SCH (08:21)
[2016-09-12] MEDS: FENOFIBRATE 48 MG TAB (TRICOR) PO SCH (08:21)
[2016-09-12] MEDS: MULTIVITAMINS/MINERALS THERAP 1 TAB PO SCH (08:21)
[2016-09-12] MEDS: LORATADINE 10 MG TAB PO SCH (08:21)
[2016-09-12] MEDS: amLODIPine 10 MG TAB PO SCH (08:22)
--- NOTE | 2016-09-12 15:31 | IPN ---
DATE: 09/12/2016 56-year-old male with a history of depression with three hospitalizations for suicidal attempt, one for hanging, another for carbon dioxide poisoning. The patient made suicidal statements at admission. SUBJECTIVE: "I am doing better." OBJECTIVE: The patient continues to improve. He is less depressed. No evidence of psychomotor retardation. He is interacting with other patients well. There is no evidence of psychotic symptoms. No auditory or visual hallucinations or delusions. The patient denies side effects from the medications. MENTAL STATUS EXAMINATION: The patient is dressed in [facility]. The patient is calm and cooperative. Has fair eye contact. Speech is normal in rate, volume, articulation, is coherent and spontaneous. Mood is depressed and anxious but significantly improved form admission. Affect is congruent with mood. No evidence of delusions or hallucinations. Memory is fair. The patient is fully oriented. Associations are intact. Thinking is logical. Thought content is appropriate. The patient is able to contract for safety during the hospitalization. Insight and judgment limited. ASSESSMENT: 1. Major depressive disorder. 2. Posttraumatic stress disorder (PTSD). 3. Rule out attention deficit hyperactivity disorder (ADHD). 4. Marijuana dependency and alcohol abuse. PLAN: 1. Continue Paxil 30 mg by mouth in the morning. 2. Continue Seroquel 100 mg by mouth at night. 3. Continue trazodone 50 mg by mouth at night as needed for insomnia. 4. Continue medication management, individual and group therapy.
[2016-09-12 18:00] VITALS: BP 138/87
--- NOTE | 2016-09-12 18:57 | IPN ---
DATE OF SERVICE: 09/11/2016 56-year-old male with history of depression and three hospitalizations for suicidal attempt, one by hanging, another by carbon dioxide poisoning. Patient made a suicidal statement before admission. SUBJECTIVE: "I am improving." OBJECTIVE: Patient is improving very slowly. Patient is now back on his medications. He is denying side effects. Patient conducts well with other patients and staff. No evidence of auditory or visual hallucinations or delusions. Patient appears motivated for treatment. MENTAL STATUS EXAMINATION: Patient is dressed in [facility]. Patient is cooperative, has fair eye contact. Speech is normal in rate, volume, articulation, is quiet and is spontaneous. Mood is depressed and anxious, but improving. Affect is restricted, but also improving. No delusions or hallucinations. Memory is fair. Patient is fully oriented. Associations are intact. Thinking is logical. Thought content is appropriate. Patient is able to contract for safety and denies suicidal or homicidal ideation during the interview. Insight and judgment is limited. ASSESSMENT: 1. Major depressive disorder. 2. Posttraumatic stress disorder (PTSD). 3. Rule out attention deficit hyperactivity disorder (ADHD). 4. Marijuana dependency and alcohol use. PLAN: 1. Continue 20 mg by mouth at night. 2. Continue Seroquel 100 mg by mouth nightly. 3. Continue trazodone 50 mg by mouth nightly as needed for insomnia. 4. Continue medication management, individual and group therapy.
[2016-09-12] MEDS: QUEtiapine FUMARATE 100 MG TAB PO SCH (20:28)
[2016-09-12] MEDS: traZODone 50 MG TAB PO PRN (20:28)
[2016-09-12] MEDS: ATORVASTATIN 20 MG TAB PO SCH (20:29)
[2016-09-13] MEDS: LEVOTHYROXINE 0.15 MG TAB (150 MCG) PO SCH (06:10)
[2016-09-13 06:32] VITALS: BP 142/86
[2016-09-13 08:10] VITALS: BP 142/86
[2016-09-13] MEDS: ASPIRIN 81 MG ENTERIC TAB PO SCH (08:10)
[2016-09-13] MEDS: LORATADINE 10 MG TAB PO SCH (08:10)
[2016-09-13] MEDS: PANTOPRAZOLE 40MG TAB (PROTONIX) PO SCH (08:10)
[2016-09-13] MEDS: MULTIVITAMINS/MINERALS THERAP 1 TAB PO SCH (08:10)
[2016-09-13] MEDS: FENOFIBRATE 48 MG TAB (TRICOR) PO SCH (08:10)
[2016-09-13] MEDS: PARoxetine 10MG TABLET PO SCH (08:10)
[2016-09-13] MEDS: amLODIPine 10 MG TAB PO SCH (08:10)
[2016-09-13] MEDS: FERROUS SULFATE 325MG TAB PO SCH (08:10)
[2016-09-13] MEDS ORDERED: TRAZO50TA PO (10:25)
[2016-09-13] MEDS ORDERED: PARO5TAB PO (10:25)
[2016-09-13] MEDS ORDERED: QUET1TAB8 PO (10:25)
[2016-09-13] MEDS ORDERED: PAXI30TA11 PO (10:46)
--- NOTE | 2016-09-13 16:41 | MHDS ---
DATE OF ADMISSION: 09/08/2016 DATE OF DISCHARGE: 09/13/2016 LEGAL STATUS AT ADMISSION: 9.39 legal status. HISTORY OF PRESENT ILLNESS: 56-year-old male with history of depression with three prior hospitalizations for suicide attempt, admitted to our unit on a 9.39 legal status. According to the chart, patient sent a text message to his son suggesting that he could find him in the basement. Patient had two other suicide attempts, one by hanging and another by carbon monoxide poisoning in the past. He was admitted because when he arrived to the emergency room he was minimizing all the symptoms and was focused on discharge. Patient states that his left him 2 weeks ago with a lot of bills to pay, "she took everything," "I gave her $80 for food stamps and she left to [place]." During the interview today, patient is anxious, impulsive, irritable, talkative, and minimizing all the symptoms and events that led to his admission. He is focused on discharge and is requesting to be discharged. Patient says that he is doing fine and that his medication is working "okay." During the interview, there is no evidence of psychotic symptoms, no evidence of auditory or visual hallucinations or delusions. Patient quit school in 10th grade. He is impulsive, talkative, and some symptoms are compatible with attention deficit hyperactivity disorder (ADHD). Patient's son has been diagnosed with ADHD. Patient also admits to the use of marijuana, but "I'm trying to quit." He says that he has not been using cannabis, but "is still in my system." Patient admits to drinking two cans of beer a day. His blood alcohol level at admission this time was negative. His urine drug screen was positive for cannabis. LABORATORY DATA: At admission: CBC is unremarkable except RDW of 15.2. CMP is unremarkable. His triglycerides are 261, cholesterol 5.0, TSH within normal limits. Urine drug screen (UDS) is positive for cannabis. Blood alcohol level is negative. HOSPITAL COURSE: After the first evaluation, patient was restarted on Paxil, although his dose was reduced to 30 mg by mouth daily. He was also started on Seroquel, again his dose was reduced from 300 to 100 mg by mouth nightly. He was also started on trazodone 50 mg by mouth nightly as needed for insomnia. With the above medications, patient was stabilized. Patient had no complications during this hospital admission. Patient's mood improved rather quickly, although he continued to show symptoms compatible with ADHD. During the reevaluation on 09/13/2016, patient denied any suicidal thoughts, patient was doing fine, patient was interacting well with other patients and staff, patient was sleeping well, his appetite was fine, he had no psychomotor retardation, he was able to smile and contract for safety. Therefore, at this point, patient does not meet criteria for inpatient hospitalization and it was decided to discharge the patient in stable condition, again with no evidence of psychotic symptoms, no auditory or visual hallucinations or delusions, and no suicidal or homicidal ideation. MEDICATIONS: At discharge: - Paxil 30 mg by mouth daily - Seroquel 100 mg by mouth nightly - trazodone 50 mg by mouth nightly as needed for insomnia MENTAL STATUS EXAMINATION AT DISCHARGE: Patient is dressed in [facility]. Patient is calm and cooperative. Speech is clear, coherent, with normal rate and is spontaneous. Has fair eye contact. Mood is euthymic. Affect is appropriate and congruent with mood. Patient is oriented to time, place, person, and situation. Maintains attention and concentration fairly. Memory is fair. Patient does not have auditory or visual hallucinations. Patient does not have paranoid, persecutory, somatic, grandiose, or latter-day delusions. Patient denies suicidal or homicidal ideation. Judgment and insight are fair. DISCHARGE DIAGNOSES: AXIS I: Adjustment disorder with depressed mood. Rule out attention deficit hyperactivity disorder (ADHD). Posttraumatic stress disorder (PTSD) by history. Marijuana dependency. Alcohol abuse. AXIS II: Deferred. AXIS III: Hypothyroidism, gastroesophageal reflux disease (GERD), and iron deficiency. INSTRUCTIONS TO THE PATIENT: Patient is to continue taking his medications as prescribed and followup appointments. He is advised to maintain absolute sobriety from drugs and alcohol. Patient has scheduled appointments for psychotropic medication management, individual psychotherapy, and primary care physician.
== END 2016-09-13 11:55 | disposition home or self-care (01) | DRG 754 ==
LOC: M ED 15:46 → M ED INP 18:57 → M PSY 21:00
PROVIDERS: ADMIT Psychiatry & Neurology Psychiatry; ATTEND Psychiatry & Neurology Psychiatry
DX: F43.21 Adjustment disorder with depressed mood (principal); F90.9 Attention-deficit hyperactivity disorder, unspecified type; E03.9 Hypothyroidism, unspecified; F10.20 Alcohol dependence, uncomplicated; F43.10 Post-traumatic stress disorder, unspecified; K21.9 Gastro-esophageal reflux disease without esophagitis; F12.20 Cannabis dependence, uncomplicated; D50.9 Iron deficiency anemia, unspecified; Z87.891 Personal history of nicotine dependence; G47.33 Obstructive sleep apnea (adult) (pediatric)

== ENCOUNTER → 2016-11-28 | Outpatient (REF) | payer OTHER ==
[~2016-11-28] MED LIST changes: +AMLO10TA2 PO; +ASPI1TAB15 PO; -ASPI81TA7 PO; -ATOR1TAB18 PO; +ATOR80TA59 PO; +CYCL5TAB PO; -DOCU100C PO; +DOCU100C16 PO; -LEVO125T3 PO; +LEVO125T4 PO; +LEVO150T42 PO; +PARO30TA3 PO; +PARO5TAB PO; +PAXI40TA10 PO; -PAXI40TA2 PO; +QUET1TAB8 PO; +QUET300T49 PO
[2016-12-01 00:06] LABS: BENZODIAZEPINES, URINE SCREEN Negative ng/mL (Cutoff=200); METHADONE, URINE SCREEN Negative ng/mL (Cutoff=300); pH, URINE 5.6 (4.5-8.9)
== END ==
LOC: M SFHCPLAZ 09:25
PROVIDERS: ATTEND Family Medicine
DX: F12.10 Cannabis abuse, uncomplicated (principal)

== ENCOUNTER → 2017-04-10 | Outpatient (REF) | payer OTHER | LOC: M SFHCADAM 07:56 | PROVIDERS: ATTEND Family Medicine | DX: E03.9 Hypothyroidism, unspecified (principal) ==

== ENCOUNTER → 2017-05-11 | Outpatient (REF) | payer OTHER ==
[2017-05-11 20:27] LABS: BASO % 0.4 % (0.0-1.0); EOS # 0.3 10^3/uL (0.0-0.50); EOS % 2.5 % (0.0-3.0); HEMATOCRIT 43.2 % (42.0-52.0); IMMATURE GRANULOCYTE % 0.4 % (0-0); LYMPH # 2.4 10^3/uL (1.5-4.5); LYMPH % 23.4 % (24.0-44.0); MEAN CORPUSCULAR HEMOGLOBIN 31.1 pg (27.0-33.0); MEAN CORPUSCULAR HGB CONC 32.4 g/dl (32.0-36.5); MONO # 0.7 10^3/uL (0.0-0.8); MONO % 6.8 % (0.0-5.0); NEUTROPHILS # 6.9 10^3/uL (1.8-7.7); NEUTROPHILS % 66.5 % (36.0-66.0); PLATELET COUNT, AUTOMATED 210 10^3/uL (150-450); RED CELL DISTRIBUTION WIDTH 15.7 % (11.5-14.5); WHITE BLOOD COUNT 10.3 10^3/uL (4.0-10.0)
[2017-05-11 21:14] LABS: TOTAL 25(OH) VITAMIN D 28.1 NG/ML (30.0-100.0); VITAMIN B12 LEVEL 1117 PG/ML (247-911)
[2017-05-11 21:16] LABS: ALBUMIN 4.6 GM/DL (3.2-5.2); ALBUMIN/GLOBULIN RATIO 1.28 (1.00-1.93); ALKALINE PHOSPHATASE 89 U/L (45-117); ALT/SGPT 23 U/L (12-78); ANION GAP 7 MEQ/L (8-16); AST/SGOT 17 U/L (7-37); BILIRUBIN,TOTAL 0.7 MG/DL (0.2-1.0); BLOOD UREA NITROGEN 14 MG/DL (7-18); CALCIUM LEVEL 9.4 MG/DL (8.5-10.1); CARBON DIOXIDE LEVEL 30 MEQ/L (21-32); CHLORIDE LEVEL 102 MEQ/L (98-107); CHOLESTEROL LEVEL 214 MG/DL (<200); CHOLESTEROL RISK RATIO 4.553 (<5); CREATININE FOR GFR 1.16 MG/DL (0.70-1.30); GLOMERULAR FILTRATION RATE > 60.0 (>56); GLUCOSE, FASTING 89 MG/DL (70-105); HDL CHOLESTEROL 47 MG/DL (>40); LDL CHOLESTEROL 109.4 MG/DL (<100); NON-HDL-C 167 MG/DL; POTASSIUM SERUM 4.7 MEQ/L (3.5-5.1); SODIUM LEVEL 139 MEQ/L (136-145); TOTAL PROTEIN 8.2 GM/DL (6.4-8.2); TRIGLYCERIDES LEVEL 288 MG/DL (<150)
[2017-05-11 21:41] LABS: ESTIMATED AVERAGE GLUCOSE 105 MG/DL (60-110); HEMOGLOBIN A1c 5.3 %
== END ==
LOC: M LABDRWAD 19:32
DX: F39 Unspecified mood [affective] disorder (principal)

== ENCOUNTER → 2017-05-30 | Outpatient (CLI) | payer OTHER | LOC: M EKG 09:54 | DX: R00.1 Bradycardia, unspecified (principal); I44.0 Atrioventricular block, first degree; F39 Unspecified mood [affective] disorder | CPT/HCPCS: 93005 ==

== ENCOUNTER → 2017-09-05 | Outpatient (CLI) | payer OTHER ==
[2017-09-05 20:04] LABS: ANION GAP 5 MEQ/L (8-16); BLOOD UREA NITROGEN 11 MG/DL (7-18); CALCIUM LEVEL 8.8 MG/DL (8.5-10.1); CARBON DIOXIDE LEVEL 31 MEQ/L (21-32); CHLORIDE LEVEL 106 MEQ/L (98-107); CREATININE FOR GFR 1.13 MG/DL (0.70-1.30); GLOMERULAR FILTRATION RATE > 60.0 (>56); GLUCOSE, FASTING 84 MG/DL (70-100); POTASSIUM SERUM 4.5 MEQ/L (3.5-5.1); SODIUM LEVEL 142 MEQ/L (136-145)
== END ==
LOC: M ADAMS 16:24
DX: M25.511 Pain in right shoulder (principal); F43.20 Adjustment disorder, unspecified; M19.011 Primary osteoarthritis, right shoulder
CPT/HCPCS: 80048

== ENCOUNTER → 2019-06-03 | Outpatient (REF) | payer MEDICARE ==
[~2019-06-03] MED LIST changes: -AMLO10TA2 PO; +AMLO10TA5 PO; -AMLO5TAB2 PO; +AMLO5TAB6 PO; -ASPI81CH PO; +ASPI81CH49 PO; -QUET300T49 PO; +QUET300T53 PO; -QUET30XR PO; +SERO300T PO; +TRAZ1TAB10 PO; -TRAZO50TA PO
== END ==
LOC: M SFHCPLAZ 13:48
PROVIDERS: ATTEND Family Medicine
DX: E03.9 Hypothyroidism, unspecified (principal); I10 Essential (primary) hypertension; Z13.1 Encounter for screening for diabetes mellitus; E78.5 Hyperlipidemia, unspecified; Z53.8 Procedure and treatment not carried out for other reasons

== ENCOUNTER → 2019-06-19 | Outpatient (REF) | payer MEDICARE ==
[~2019-06-19] MED LIST changes: +QUET100T2 PO; -QUET1TAB8 PO
[2019-06-19 12:50] LABS: HEMOGLOBIN 13.9 g/dl (13.5-17.5); MEAN CORPUSCULAR HEMOGLOBIN 29.6 pg (27.0-33.0); MEAN CORPUSCULAR HGB CONC 33.9 g/dl (32.0-36.5); MEAN CORPUSCULAR VOLUME 87.2 fl (80.0-96.0); PLATELET COUNT, AUTOMATED 178 10^3/uL (150-450); WHITE BLOOD COUNT 6.2 10^3/uL (4.0-10.0)
[2019-06-19 13:05] LABS: ALBUMIN 4.4 GM/DL (3.2-5.2); ALT/SGPT 23 U/L (12-78); BILIRUBIN,TOTAL 0.5 MG/DL (0.2-1.0); BLOOD UREA NITROGEN 10 MG/DL (7-18); CALCIUM LEVEL 9.2 MG/DL (8.5-10.1); CARBON DIOXIDE LEVEL 26 MEQ/L (21-32); CHLORIDE LEVEL 96 MEQ/L (98-107); CHOLESTEROL LEVEL 166 MG/DL (<200); CHOLESTEROL RISK RATIO 4.048 (<5); CREATININE FOR GFR 0.97 MG/DL (0.70-1.30); FREE T4 0.87 NG/DL (0.76-1.46); GLOMERULAR FILTRATION RATE > 60.0 (>56); GLUCOSE, FASTING 101 MG/DL (70-100); HDL CHOLESTEROL 41 MG/DL (>40); LDL CHOLESTEROL 91 MG/DL (<100); NON-HDL-C 125 MG/DL; POTASSIUM SERUM 4.1 MEQ/L (3.5-5.1); SODIUM LEVEL 127 MEQ/L (136-145); TOTAL PROTEIN 7.5 GM/DL (6.4-8.2); TRIGLYCERIDES LEVEL 170 MG/DL (<150)
[2019-06-19 13:34] LABS: HEMOGLOBIN A1c 5.5 %
== END ==
LOC: M LABDRWAD 12:37
PROVIDERS: ATTEND Student in an Organized Health Care Education/Training Program
DX: Z13.1 Encounter for screening for diabetes mellitus (principal); E78.5 Hyperlipidemia, unspecified; Z79.899 Other long term (current) drug therapy

== ENCOUNTER → 2019-07-01 | Outpatient (REF) | payer MEDICARE | LOC: M SFHCPLAZ 11:55 | PROVIDERS: ATTEND Student in an Organized Health Care Education/Training Program | DX: E03.9 Hypothyroidism, unspecified (principal) ==

== ENCOUNTER 2019-07-10 07:13 | Day surgery (SDC) | payer MEDICARE ==
[~2019-07-10] VITALS: Ht 175.3 cm; Wt 98.4 kg
[~2019-07-10 07:13] MED LIST changes: +CITA20TA6 PO; +NS 1,000 ML IV ONE; +OXCA600T8 PO
[2019-07-10] MEDS ORDERED: propofoL 200 MG/20 ML VIAL As Ordered ONE ×3 (08:12→09:34)
[2019-07-10] MEDS ORDERED: LIDOCAINE 2% INJ 100 MG/5 ML SDV (FOR ANES.) As Ordered ONE (08:12)
--- NOTE | 2019-07-10 09:46 | ROOR ---
Patient Name: Mars Elaine Procedure Date: 07/10/2019 9:12 AM Date of : 1960 Age: 59 Room: [facility] Gender: Male Note Status: Finalized Procedure: Colonoscopy Indications: High risk colon cancer surveillance: Personal history of colonic polyps Providers: Prosper GUERRIER MD Referring MD: [facility] DANIELA Barbara [facility] Scottie Valderrama Do Requesting Provider: Medicines: Monitored Anesthesia Care Complications: No immediate complications. Procedure: Pre-Anesthesia Assessment: - The heart rate, respiratory rate, oxygen saturations, blood pressure, adequacy of pulmonary ventilation, and response to care were monitored throughout the procedure. The Colonoscope was introduced through the anus and advanced to the cecum, identified by appendiceal orifice and ileocecal valve. The colonoscopy was performed without difficulty. The patient tolerated the procedure well. The quality of the bowel preparation was good. Findings: The perianal and digital rectal examinations were normal. A 5 mm polyp was found in the ascending colon. The polyp was sessile. The polyp was removed with a cold snare. Resection and retrieval were complete. A 3 mm polyp was found in the hepatic flexure. The polyp was sessile. The polyp was removed with a jumbo cold forceps. Resection and retrieval were complete. Three flat polyps were found in the sigmoid colon. The polyps were 4 to 10 mm in size. These polyps were removed with a cold snare. Resection and retrieval were complete. To prevent bleeding after the polypectomy, one hemostatic clip was successfully placed. There was no bleeding at the end of the procedure. Internal hemorrhoids were found during retroflexion. The hemorrhoids were moderate. Retroflexion in the right colon was performed. The exam was otherwise without abnormality on direct and retroflexion views. Impression: - One 5 mm polyp in the ascending colon, removed with a cold snare. Resected and retrieved. - One 3 mm polyp at the hepatic flexure, removed with a jumbo cold forceps. Resected and retrieved. - Three 4 to 10 mm polyps in the sigmoid colon, removed with a cold snare. Resected and retrieved. Clip was placed. - Internal hemorrhoids. - The examination was otherwise normal on direct and retroflexion views. Recommendation: - Repeat colonoscopy in 3 years for surveillance. Prosper Guerrier MD Prosper GUERRIER MD 07/10/2019 9:45:47 AM Electronically signed by Prosper GUERRIER MD Number of Addenda: 0 Note Initiated On: 07/10/2019 9:12 AM Estimated Blood Loss: Estimated blood loss: none.
[2019-07-10 10:05] VITALS: BP 125/90
== END 2019-07-10 10:11 | disposition home or self-care (01) ==
LOC: M OPP 07:13
PROVIDERS: ATTEND Internal Medicine Gastroenterology
DX: Z12.11 Encounter for screening for malignant neoplasm of colon (principal); Z86.010 Personal history of colon polyps; D12.2 Benign neoplasm of ascending colon; D12.3 Benign neoplasm of transverse colon; D12.5 Benign neoplasm of sigmoid colon; K64.8 Other hemorrhoids; F17.210 Nicotine dependence, cigarettes, uncomplicated; Z79.899 Other long term (current) drug therapy; Z88.0 Allergy status to penicillin; Z88.1 Allergy status to other antibiotic agents; Z88.5 Allergy status to narcotic agent

== ENCOUNTER → 2019-09-16 | Outpatient (REF) | payer MEDICARE ==
[~2019-09-16] MED LIST changes: -NS 1,000 ML IV ONE
== END ==
LOC: M SFHCPLAZ 09:16
PROVIDERS: ATTEND Family Medicine
DX: E03.9 Hypothyroidism, unspecified (principal)

== ENCOUNTER → 2019-09-16 | Outpatient (CLI) | payer MEDICARE ==
--- NOTE | 2019-09-16 13:40 | REP ---
FOOT: REASON: Pain. FINDINGS: The joint spaces are symmetric and relatively well maintained. There is no evidence of acute fracture or destructive osseous lesion. IMPRESSION: Negative. Electronically Signed by Billy Briceno DO 09/16/2019 01:58 P
--- NOTE | 2019-09-16 13:44 | REP ---
ANKLE: REASON: Atraumatic pain. COMPARISON: No priors. FINDINGS: No acute fracture or destructive osseous lesion. The mortise is intact. Electronically Signed by Billy Briceno DO 09/16/2019 01:58 P
== END ==
LOC: M ADAMS 09:03
PROVIDERS: ATTEND Student in an Organized Health Care Education/Training Program
DX: L84 Corns and callosities (principal); E03.9 Hypothyroidism, unspecified

== ENCOUNTER → 2020-03-06 | Outpatient (REF) | payer MEDICARE ==
[~2020-03-06] MED LIST changes: -AMLO10TA5 PO; +AMLO1TAB24 PO; +AMLO1TAB25 PO; -AMLO5TAB6 PO; +ASPI-546 PO; -ASPI1TAB15 PO
== END ==
LOC: M SFHCPLAZ 11:12
PROVIDERS: ATTEND Family Medicine
DX: E03.9 Hypothyroidism, unspecified (principal)

== ENCOUNTER → 2020-04-10 | Outpatient (REF) | payer MEDICARE ==
[2020-04-10 14:08] LABS: FREE T4 0.91 NG/DL (0.76-1.46); THYROID STIMULATING HORMONE 1.12 uIU/ML (0.358-3.740)
== END ==
LOC: M SFHCPLAZ 09:20
PROVIDERS: ATTEND Family Medicine
DX: E03.9 Hypothyroidism, unspecified (principal)

== ENCOUNTER → 2021-09-14 | Outpatient (CLI) | payer MEDICARE ==
[2021-09-14 16:46] LABS: CHOLESTEROL RISK RATIO 3.75 (<5)
[2021-09-14 16:47] LABS: FREE T4 0.79 NG/DL (0.76-1.46); THYROID STIMULATING HORMONE 0.511 uIU/ML (0.358-3.740)
[2021-09-14 17:34] LABS: HEMOGLOBIN A1c 5.5 %
== END ==
LOC: M WUC 12:55
PROVIDERS: ATTEND Family Medicine
DX: E78.2 Mixed hyperlipidemia (principal); Z13.1 Encounter for screening for diabetes mellitus; E03.9 Hypothyroidism, unspecified; Z79.899 Other long term (current) drug therapy

== ENCOUNTER → 2022-03-29 | Outpatient (CLI) | payer MEDICARE ==
[~2022-03-29] MED LIST changes: -QUET300T53 PO; +QUET300T93 PO
[2022-03-29 13:02] LABS: BASO # 0.1 10^3/uL (0.0-0.2); BASO % 0.7 % (0.0-1.0); EOS # 0.1 10^3/uL (0.0-0.5); EOS % 1.9 % (0.0-3.0); HEMATOCRIT 37.8 % (42.0-52.0); HEMOGLOBIN 11.9 g/dl (13.5-17.5); LYMPH # 1.7 10^3/uL (1.5-5.0); LYMPH % 25.2 % (24.0-44.0); MEAN CORPUSCULAR HEMOGLOBIN 28.5 pg (27.0-33.0); MEAN CORPUSCULAR HGB CONC 31.5 g/dl (32.0-36.5); MEAN CORPUSCULAR VOLUME 90.6 fl (80.0-96.0); MONO # 0.5 10^3/uL (0.0-0.8); MONO % 6.9 % (2.0-8.0); NEUTROPHILS # 4.5 10^3/uL (1.5-8.5); NEUTROPHILS % 64.9 % (36.0-66.0); PLATELET COUNT, AUTOMATED 263 10^3/uL (150-450); RED BLOOD COUNT 4.17 10^6/uL (4.30-6.10); WHITE BLOOD COUNT 6.9 10^3/uL (4.0-10.0)
[2022-03-29 13:12] LABS: CHLORIDE LEVEL 99 MMOL/L (98-107); POTASSIUM SERUM 4.5 MMOL/L (3.5-5.1); SODIUM LEVEL 135 MMOL/L (136-145)
[2022-03-29 13:13] LABS: ALBUMIN 3.7 G/DL (3.2-5.2); CARBON DIOXIDE LEVEL 28 MMOL/L (20-31)
[2022-03-29 13:17] LABS: BLOOD UREA NITROGEN 8 MG/DL (9-23); TRIGLYCERIDES LEVEL 221 MG/DL (<150)
[2022-03-29 13:18] LABS: ALKALINE PHOSPHATASE 108 U/L (46-116); CALCIUM LEVEL 8.5 MG/DL (8.3-10.6); GLUCOSE, FASTING 90 MG/DL (74-106); GLUCOSE,RANDOM 90 MG/DL (LESS THAN 200)
[2022-03-29 13:19] LABS: BILIRUBIN,TOTAL 0.2 MG/DL (0.3-1.2); PHOSPHORUS LEVEL 2.9 MG/DL (2.4-5.1); TOTAL PROTEIN 6.7 G/DL (5.7-8.2)
[2022-03-29 13:20] LABS: ALT/SGPT 26 U/L (7.0-40); AST/SGOT 19 U/L (<34); BILIRUBIN,DIRECT < 0.1 MG/DL (<0.4); CHOLESTEROL LEVEL 146 MG/DL (<200); CHOLESTEROL RISK RATIO 4.23 (<5); CREATININE FOR GFR 0.81 MG/DL (0.70-1.30); GLOMERULAR FILTRATION RATE > 60.0 (>49); HDL CHOLESTEROL 34.5 MG/DL (>40); LDL CHOLESTEROL 67.3 MG/DL (<100); NON-HDL-C 112 MG/DL
[2022-03-29 13:23] LABS: HEMOGLOBIN A1c 5.3 % (4.0-6.0); THYROID STIMULATING HORMONE 3.687 uIU/ML (0.55-4.78)
[2022-03-29 13:24] LABS: TOTAL 25(OH) VITAMIN D 20.2 NG/ML (20.0-100.0)
== END ==
LOC: M WUC 10:03
PROVIDERS: ATTEND Registered Nurse
DX: F31.81 Bipolar II disorder (principal); Z79.899 Other long term (current) drug therapy

== ENCOUNTER 2022-09-27 06:44 | Day surgery (SDC) | payer MEDICARE ==
[~2022-09-27] VITALS: Ht 175.3 cm; Wt 98.9 kg
[~2022-09-27 06:44] MED LIST changes: +NS 1,000 ML IV ONE; -PAXI30TA11 PO; +PAXI30TA12 PO; -PAXI40TA10 PO; +PAXI40TA12 PO
[2022-09-27] MEDS ORDERED: propofoL 200 MG/20 ML VIAL As Ordered ONE ×2 (07:56→08:24)
[2022-09-27] MEDS ORDERED: LIDOCAINE 2% 100MG/5ML SDV (FOR ANES.) As Ordered ONE (07:56)
[2022-09-27 09:10] VITALS: BP 189/95
== END 2022-09-27 09:15 | disposition home or self-care (01) ==
LOC: M OPP 06:44
PROVIDERS: ATTEND Internal Medicine Gastroenterology
DX: Z12.11 Encounter for screening for malignant neoplasm of colon (principal); Z86.010 Personal history of colon polyps; D12.4 Benign neoplasm of descending colon; K57.30 Diverticulosis of large intestine without perforation or abscess without bleeding; K64.8 Other hemorrhoids; Z79.02 Long term (current) use of antithrombotics/antiplatelets; Z79.890 Hormone replacement therapy; Z79.899 Other long term (current) drug therapy; Z88.0 Allergy status to penicillin; Z88.1 Allergy status to other antibiotic agents; Z88.5 Allergy status to narcotic agent

== ENCOUNTER → 2022-11-14 | Outpatient (CLI) | payer MEDICARE ==
[~2022-11-14] MED LIST changes: -NS 1,000 ML IV ONE
== END ==
LOC: M CARPUL 11:20
PROVIDERS: ATTEND Student in an Organized Health Care Education/Training Program
DX: R06.02 Shortness of breath (principal)

== ENCOUNTER → 2023-09-13 | Outpatient (CLI) | payer MEDICARE ==
[2023-09-13 14:26] LABS: BASO % 0.5 % (0.0-1.0); EOS # 0.1 10^3/uL (0.0-0.5); EOS % 1.6 % (0.0-3.0); HEMATOCRIT 36.9 % (42.0-52.0); HEMOGLOBIN 12.1 g/dl (13.5-17.5); LYMPH # 1.2 10^3/uL (1.5-5.0); LYMPH % 20.7 % (24.0-44.0); MEAN CORPUSCULAR HEMOGLOBIN 27.1 pg (27.0-33.0); MEAN CORPUSCULAR HGB CONC 32.8 g/dl (32.0-36.5); MEAN CORPUSCULAR VOLUME 82.7 fl (80.0-96.0); MONO # 0.5 10^3/uL (0.0-0.8); MONO % 8.5 % (2.0-8.0); NEUTROPHILS # 3.9 10^3/uL (1.5-8.5); NEUTROPHILS % 68.3 % (36.0-66.0); PLATELET COUNT, AUTOMATED 188 10^3/uL (150-450); RED BLOOD COUNT 4.46 10^6/uL (4.30-6.10); WHITE BLOOD COUNT 5.6 10^3/uL (4.0-10.0)
[2023-09-13 15:10] LABS: ALBUMIN 4.1 G/DL (3.2-5.2); ALKALINE PHOSPHATASE 120 U/L (46-116); ALT/SGPT 15 U/L (7.0-40); AST/SGOT 19 U/L (<34); BILIRUBIN,TOTAL 0.5 MG/DL (0.3-1.2); BLOOD UREA NITROGEN 7 MG/DL (9-23); CALCIUM LEVEL 8.6 MG/DL (8.3-10.6); CARBON DIOXIDE LEVEL 25 MMOL/L (20-31); CHLORIDE LEVEL 93 MMOL/L (98-107); CHOLESTEROL LEVEL 150 MG/DL (<200); CHOLESTEROL RISK RATIO 4.17 (<5); CREATININE FOR GFR 0.86 MG/DL (0.70-1.30); FREE THYROXINE INDEX 2.2 % (1.4-3.8); GLOMERULAR FILTRATION RATE > 60.0 (>49); GLUCOSE, FASTING 95 MG/DL (74-106); HDL CHOLESTEROL 35.9 MG/DL (>40); LDL CHOLESTEROL 79.3 MG/DL (<100); NON-HDL-C 114.1 MG/DL; POTASSIUM SERUM 4.4 MMOL/L (3.5-5.1); SODIUM LEVEL 125 MMOL/L (136-145); T UPTAKE 31.1 % (22.5-37.0); TOTAL PROTEIN 7.1 G/DL (5.7-8.2); TRIGLYCERIDES LEVEL 174 MG/DL (<150)
== END ==
LOC: M PLALAB 10:41
PROVIDERS: ATTEND Student in an Organized Health Care Education/Training Program
DX: E78.5 Hyperlipidemia, unspecified (principal); E03.9 Hypothyroidism, unspecified

== ENCOUNTER → 2023-09-15 | Outpatient (CLI) | payer MEDICARE ==
[2023-09-15 16:56] LABS: BLOOD UREA NITROGEN 8 MG/DL (9-23); CALCIUM LEVEL 8.7 MG/DL (8.3-10.6); CARBON DIOXIDE LEVEL 25 MMOL/L (20-31); CHLORIDE LEVEL 94 MMOL/L (98-107); CREATININE FOR GFR 0.83 MG/DL (0.70-1.30); GLOMERULAR FILTRATION RATE > 60.0 (>49); GLUCOSE, FASTING 117 MG/DL (74-106); OSMOLALITY URINE 491 MOSM/KG (50-1400); POTASSIUM SERUM 4.3 MMOL/L (3.5-5.1); SODIUM LEVEL 123 MMOL/L (136-145)
[2023-09-15 17:11] LABS: SODIUM,RANDOM URINE 92 MMOL/L
== END ==
LOC: M WUC 13:53
PROVIDERS: ATTEND Student in an Organized Health Care Education/Training Program
DX: E87.1 Hypo-osmolality and hyponatremia (principal)

== ENCOUNTER → 2023-09-26 | Outpatient (CLI) | payer MEDICARE ==
[2023-09-26 16:47] LABS: BLOOD UREA NITROGEN 9 MG/DL (9-23); CALCIUM LEVEL 8.8 MG/DL (8.3-10.6); CARBON DIOXIDE LEVEL 27 MMOL/L (20-31); CHLORIDE LEVEL 96 MMOL/L (98-107); GLOMERULAR FILTRATION RATE > 60.0 (>49); GLUCOSE, FASTING 121 MG/DL (74-106); POTASSIUM SERUM 4.3 MMOL/L (3.5-5.1); SODIUM LEVEL 128 MMOL/L (136-145)
[2023-09-26 16:56] LABS: SODIUM,RANDOM URINE 125 MMOL/L
[2023-09-26 19:12] LABS: OSMOLALITY URINE 638 MOSM/KG (50-1400)
== END ==
LOC: M WUC 11:26
PROVIDERS: ATTEND Student in an Organized Health Care Education/Training Program
DX: E87.1 Hypo-osmolality and hyponatremia (principal)

== ENCOUNTER → 2023-10-10 | Outpatient (REF) | payer MEDICARE ==
[2023-10-10 13:53] LABS: SODIUM,RANDOM URINE 96 MMOL/L
[2023-10-10 14:07] LABS: BLOOD UREA NITROGEN 12 MG/DL (9-23); CALCIUM LEVEL 8.6 MG/DL (8.3-10.6); CARBON DIOXIDE LEVEL 26 MMOL/L (20-31); CHLORIDE LEVEL 101 MMOL/L (98-107); CREATININE FOR GFR 0.93 MG/DL (0.70-1.30); GLOMERULAR FILTRATION RATE > 60.0 (>49); GLUCOSE, FASTING 170 MG/DL (74-106); POTASSIUM SERUM 4.3 MMOL/L (3.5-5.1); SODIUM LEVEL 133 MMOL/L (136-145)
[2023-10-10 14:12] LABS: OSMOLALITY URINE 950 MOSM/KG (50-1400)
== END ==
LOC: M SFHCPLAZ 12:27
PROVIDERS: ATTEND Student in an Organized Health Care Education/Training Program
DX: E87.1 Hypo-osmolality and hyponatremia (principal)

== ENCOUNTER → 2023-10-23 | Outpatient (CLI) | payer MEDICARE ==
[2023-10-23 17:21] LABS: SODIUM,RANDOM URINE 98 MMOL/L
[2023-10-23 17:30] LABS: BLOOD UREA NITROGEN 9 MG/DL (9-23); CALCIUM LEVEL 8.3 MG/DL (8.3-10.6); CARBON DIOXIDE LEVEL 28 MMOL/L (20-31); CHLORIDE LEVEL 94 MMOL/L (98-107); CREATININE FOR GFR 0.86 MG/DL (0.70-1.30); GLOMERULAR FILTRATION RATE > 60.0 (>49); GLUCOSE, FASTING 71 MG/DL (74-106); POTASSIUM SERUM 3.9 MMOL/L (3.5-5.1); SODIUM LEVEL 126 MMOL/L (136-145)
[2023-10-23 19:10] LABS: OSMOLALITY URINE 752 MOSM/KG (50-1400)
== END ==
LOC: M WUC 10:33
PROVIDERS: ATTEND Student in an Organized Health Care Education/Training Program
DX: E87.1 Hypo-osmolality and hyponatremia (principal)

== ENCOUNTER → 2023-10-31 | Outpatient (CLI) | payer MEDICARE ==
[2023-10-31 17:02] LABS: BLOOD UREA NITROGEN 8 MG/DL (9-23); CALCIUM LEVEL 8.3 MG/DL (8.3-10.6); CARBON DIOXIDE LEVEL 27 MMOL/L (20-31); CHLORIDE LEVEL 96 MMOL/L (98-107); CREATININE FOR GFR 0.82 MG/DL (0.70-1.30); GLOMERULAR FILTRATION RATE > 60.0 (>49); GLUCOSE, FASTING 112 MG/DL (74-106); POTASSIUM SERUM 4.1 MMOL/L (3.5-5.1); SODIUM LEVEL 128 MMOL/L (136-145)
== END ==
LOC: M WUC 11:15
PROVIDERS: ATTEND Student in an Organized Health Care Education/Training Program
DX: E22.2 Syndrome of inappropriate secretion of antidiuretic hormone (principal)

== ENCOUNTER → 2024-01-24 | Outpatient (REF) | payer MEDICARE ==
[2024-01-24 14:31] LABS: BLOOD UREA NITROGEN 12 MG/DL (9-23); CALCIUM LEVEL 9.2 MG/DL (8.3-10.6); CARBON DIOXIDE LEVEL 28 MMOL/L (20-31); CHLORIDE LEVEL 102 MMOL/L (98-107); CREATININE FOR GFR 1.02 MG/DL (0.70-1.30); GLOMERULAR FILTRATION RATE > 60.0 (>49); GLUCOSE, FASTING 99 MG/DL (74-106); POTASSIUM SERUM 4.3 MMOL/L (3.5-5.1); SODIUM LEVEL 134 MMOL/L (136-145)
== END ==
LOC: M LABWUC 13:00
PROVIDERS: ATTEND Student in an Organized Health Care Education/Training Program
DX: E87.1 Hypo-osmolality and hyponatremia (principal)

== ENCOUNTER → 2024-08-05 | Outpatient (CLI) | payer MEDICARE, MEDICAID ==
[~2024-08-05] MED LIST changes: -CYCL5TAB PO; +CYCL5TAB4 PO
== END ==
LOC: M WUC 09:23
PROVIDERS: ATTEND Student in an Organized Health Care Education/Training Program
DX: M54.2 Cervicalgia (principal); I73.9 Peripheral vascular disease, unspecified

== ENCOUNTER → 2024-09-09 | Outpatient (CLI) | payer MEDICARE, MEDICAID ==
[2024-09-09 17:59] LABS: HEMOGLOBIN A1c 5.8 % (4.0-6.0)
[2024-09-09 18:12] LABS: ALBUMIN 4.1 G/DL (3.2-5.2); ALKALINE PHOSPHATASE 105 U/L (40-129); ALT/SGPT 13 U/L (7.0-40); AST/SGOT 8 U/L (<34); BILIRUBIN,TOTAL 0.4 MG/DL (0.3-1.2); BLOOD UREA NITROGEN 12 MG/DL (9-23); CALCIUM LEVEL 8.9 MG/DL (8.3-10.6); CARBON DIOXIDE LEVEL 28 MMOL/L (20-31); CHLORIDE LEVEL 99 MMOL/L (98-107); CHOLESTEROL LEVEL 160 MG/DL (<200); CHOLESTEROL RISK RATIO 4.11 (<5); CREATININE FOR GFR 0.94 MG/DL (0.70-1.30); GLOMERULAR FILTRATION RATE > 90.0 (>49); GLUCOSE, FASTING 83 MG/DL (74-106); HDL CHOLESTEROL 38.9 MG/DL (>40); LDL CHOLESTEROL 87.9 MG/DL (<100); NON-HDL-C 121.1 MG/DL; POTASSIUM SERUM 4.4 MMOL/L (3.5-5.1); SODIUM LEVEL 134 MMOL/L (136-145); TOTAL PROTEIN 7.4 G/DL (5.7-8.2); TRIGLYCERIDES LEVEL 166 MG/DL (<150)
[2024-09-09 18:15] LABS: THYROID STIMULATING HORMONE 7.699 uIU/ML (0.55-4.78)
== END ==
LOC: M PLALAB 16:04
PROVIDERS: ATTEND Student in an Organized Health Care Education/Training Program
DX: R19.7 Diarrhea, unspecified (principal); E78.2 Mixed hyperlipidemia; R00.1 Bradycardia, unspecified; Z13.1 Encounter for screening for diabetes mellitus

== ENCOUNTER → 2024-09-16 | Outpatient (CLI) | payer MEDICARE, MEDICAID | LOC: M CARPUL 16:22 | PROVIDERS: ATTEND Student in an Organized Health Care Education/Training Program | DX: R00.1 Bradycardia, unspecified (principal) ==

== ENCOUNTER → 2024-11-21 | Outpatient (REF) | payer MEDICARE, MEDICAID | LOC: M LABWUC 14:04 | PROVIDERS: ATTEND Internal Medicine Cardiovascular Disease | DX: I49.5 Sick sinus syndrome (principal); I44.2 Atrioventricular block, complete; R06.02 Shortness of breath ==

== ENCOUNTER → 2025-03-03 | Outpatient (CLI) | payer MEDICARE, MEDICAID ==
[2025-03-03 14:08] LABS: ALT/SGPT 18 U/L (7.0-40); AST/SGOT 20 U/L (<34); CALCIUM LEVEL 8.7 MG/DL (8.3-10.6); CARBON DIOXIDE LEVEL 28 MMOL/L (20-31); CHLORIDE LEVEL 97 MMOL/L (98-107); CHOLESTEROL LEVEL 146 MG/DL (<200); CHOLESTEROL RISK RATIO 3.92 (<5); CREATININE FOR GFR 0.84 MG/DL (0.70-1.30); GLOMERULAR FILTRATION RATE > 90.0 (>49); LDL CHOLESTEROL 77.4 MG/DL (<100); NON-HDL-C 108.8 MG/DL; POTASSIUM SERUM 4.2 MMOL/L (3.5-5.1); SODIUM LEVEL 130 MMOL/L (136-145); TRIGLYCERIDES LEVEL 157 MG/DL (<150)
[2025-03-03 14:11] LABS: FREE T4 0.87 NG/DL (0.89-1.76)
[2025-03-03 14:15] LABS: ESTIMATED AVERAGE GLUCOSE 117.0 MG/DL (60-110)
[2025-03-03 14:21] LABS: BASO # 0.0 10^3/uL (0.0-0.2); BASO % 0.6 % (0.0-1.0); EOS # 0.1 10^3/uL (0.0-0.5); EOS % 2.1 % (0.0-3.0); LYMPH # 1.6 10^3/uL (1.5-5.0); LYMPH % 25.6 % (24.0-44.0); MONO # 0.5 10^3/uL (0.0-0.8); MONO % 7.4 % (2.0-8.0); NEUTROPHILS # 4.0 10^3/uL (1.5-8.5); NEUTROPHILS % 63.7 % (36.0-66.0); PLATELET COUNT, AUTOMATED 193 10^3/uL (150-450)
== END ==
LOC: M PLALAB 10:47
PROVIDERS: ATTEND Student in an Organized Health Care Education/Training Program
DX: E03.9 Hypothyroidism, unspecified (principal); I10 Essential (primary) hypertension; K21.9 Gastro-esophageal reflux disease without esophagitis; E78.2 Mixed hyperlipidemia; Z79.899 Other long term (current) drug therapy